=== PATIENT | female | born 1970 | race Caucasian/White ===

== ENCOUNTER → 2017-01-02 | Outpatient (CLI) | payer BC ==
[~2017-01-02] MED LIST: ALBU17AE3 IH; DOCU100C37 PO; ESTR1PAT73 TD; FEXO30TA17 PO; HYDR-3816 PO; IBUP-1773 PO; MULT-974 PO; NF-ESOM40C PO; RT-ALBUINH IH; SIME80TA16 PO; TRIA1CAP4 PO; TRIA1TAB42 PO
--- NOTE | 2017-01-02 18:09 | Diagnostic Imaging Report ---
Bilateral screening mammogram 2D views with tomosynthesis. The current study was also evaluated with a Computer Aided Detection (CAD) system. INDICATION: Screening. No current complaints stated on the questionnaire. COMPARISON: 08/15/2015. FINDINGS: The breasts are composed of scattered fibroglandular densities. No mass, architectural distortion, or suspicious cluster of calcifications seen. Allowing for technique and positional differences, no suspicious change is seen. IMPRESSION: No significant change. ACR BI-RADS Category 2: Benign findings. Result letter will be mailed to the patient. Note: At least 10% of breast cancer is not imaged by mammography. Dictated by: Dictated on workstation # [id number]
== END ==
LOC: RAD 15:10
PROVIDERS: ATTEND Obstetrics & Gynecology
DX: Z12.31 Encounter for screening mammogram for malignant neoplasm of breast (principal)
CPT/HCPCS: 77067

== ENCOUNTER 2017-10-29 06:04 | Outpatient (CLI) | payer BC ==
[~2017-10-29] VITALS: Ht 167.6 cm; Wt 88.0 kg
[~2017-10-29 06:04] MED LIST changes: +HYDR-34 PO; -HYDR-3816 PO
== END 2017-10-29 10:47 ==
LOC: PREOP 06:04
PROVIDERS: ATTEND Internal Medicine
DX: Z01.818 Encounter for other preprocedural examination (principal)

== ENCOUNTER 2017-11-01 08:46 | Day surgery (SDC) | payer BC ==
[~2017-11-01] VITALS: Ht 167.6 cm; Wt 86.2 kg
[2017-11-01] MEDS ORDERED: D5 LR IV SOLUTION 1,000 ML IV ONE (09:13)
[2017-11-01] MEDS ORDERED: D5 LR IV SOLUTION 1,000 ML IV STA (09:27)
[2017-11-01] MEDS ORDERED: MIDAZOLAM 2 MG/2 ML (VERSED) VIAL IVP PRN (09:30)
[2017-11-01] MEDS ORDERED: fentaNYL INJECTION 100 MCG/2 ML AMP IVP PRN (09:30)
--- NOTE | 2017-11-01 09:37 | Pre-Op Note & Conscious Sedat ---
Pre-Operative Progress Note H&P Reviewed The H&P was reviewed, patient examined and no changes noted. Date H&P Reviewed: Nov 01, 2017 Time H&P Reviewed: 09:37 Conscious Sedation Pre-Proced ASA Class: 2 Airway Mallampati Classification: ([place] appropriate class) I. II. III, IV Lungs Heart ASA score ASA 1: a normal healthy patient ASA 2: a patient with a mild systemic disease (mid diabetes, controlled hypertension, obesity ASA 3: a patient with a severe systemic disease that limits activity (angina , COPD, prior Myocardial infarction) ASA 4: a patient with an incapacitating disease that is a constant threat to life (CHF, renal failure) ASA 5: a moribund patient not expected to survive 24 hrs. (ruptured aneurysm) ASA 6: a declared brain patient whose organs are being harvested. For emergent operations, add the letter E after the classification Grade 3 Sedation Plan: Analgesia, Amnesia, Plan communicated to team members, Discussed options with patient/fam, Discussed risks with patient/fam Note The patient is an appropriate candidate to undergo the planned procedure, sedation, and anesthesia. The patient immediately re-assessed prior to indication. GUNNER CAST MD Nov 01, 2017 09:37
[2017-11-01] MEDS ORDERED: PROPOFOL INJECTION 50 ML IV ONE (10:10)
[2017-11-01] MEDS ORDERED: MIDAZOLAM 2 MG/2 ML (VERSED) VIAL ONE (10:10)
[2017-11-01 10:32] VITALS: BP 125/96
[2017-11-01] MEDS ORDERED: CHOL210P2 PO (11:19)
[2017-11-01 11:20] VITALS: BP 95/61
[2017-11-01 12:00] VITALS: BP 101/69
[2017-11-01 15:56] VITALS: BP 101/69
--- NOTE | 2017-11-01 16:51 | OPERATIVE REPORT ---
DATE OF SERVICE: PANENDOSCOPY SUMMARY Panendoscopy is performed for evaluation of epigastric and bilateral lower quadrant abdominal pain with diarrhea. The patient was placed in left lateral decubitus position. The endoscope was inserted in the oral cavity and under direct visualization, the esophagus was intubated. The scope was passed down the esophagus, stomach and second portion of the duodenum. A careful inspection was made as the endoscope was withdrawn. FINDINGS: The posterior pharynx, arytenoid aperture and true and false vocal folds were unremarkable. The proximal, mid and distal esophagus were unremarkable. There was a moderate size hiatal hernia with approximately 3 to 4 cm of the stomach being present above the level of the diaphragm involving the majority of the cardia. There is no evidence for erosive esophagitis and no evidence to suggest Vieira's change. Now the cardia of the stomach was unremarkable. The fundus was unremarkable. There were some mild linear areas of erythema confined to the antrum. A biopsy was obtained and submitted for histopathology. There is no evidence for erosions or peptic ulcer disease. Gastric motility grossly appeared to be normal. There was no evidence for retained food in the stomach. The pylorus, pyloric channel, the duodenal bulb and second portion of the duodenum were unremarkable with normal villous-appearing architecture in regards to the small intestine. ASSESSMENT: Moderate size hiatal hernia is again noted without evidence for erosive esophagitis or Vieira's change. There is some mild antral erythema suggesting mild gastritis. A biopsy was obtained and submitted for Helicobacter evaluation. No other abnormalities were noted on today's study. There is normal villous architecture of the first and second portion of the duodenum without inflammatory change or any evidence to suggest villous atrophy. We then proceeded with colonoscopy. The patient was placed in left lateral decubitus position. A digital rectal evaluation was performed and was unremarkable and no evidence for internal or external hemorrhoids was noted. On visual inspection of the anal canal, there are some small telangiectatic blood vessels without evidence for overt hemorrhoids. The rectum, sigmoid colon, descending colon, splenic flexure, transverse colon, ascending colon and cecum were unremarkable. There was no evidence for diverticular disease, colonic inflammation, vascular malformation or neoplasia. A biopsy was obtained from the rectum for evaluation for microscopic colitis. ASSESSMENT: Normal colonoscopy to the cecum including terminal ileum other than some telangiectatic blood vessels in the anal canal. Symptoms got significantly worse after cholecystectomy, so we will first recommend Questran Light pack or scoop before breakfast in the evening meal. If this is not effective for her symptoms, other possibilities include small bowel bacterial overgrowth or fructose intolerance and she does note that her symptoms are worse after a Pepsi. She was advised to refrain from all soda beverages and juices for now. I did take the liberty of having her return to see me for one followup visit in several weeks to see if Questran Light is improving her symptoms. If not, we will give her a low FODMAP diet and there will be consideration for antibiotic therapy for small bowel bacterial overgrowth. I thank you for the referral of this pleasant lady. Job ID: [id number] DocumentID: [id number] Dictated Date: 11/01/2017 12:21:54 Hand Grinder Date: 11/01/2017 16:51:19 Dictated By: GUNNER CAST MD MTDD
--- NOTE | 2017-11-26 08:26 | HISTORY AND PHYSICAL ---
PANENDOSCOPY HISTORY AND PHYSICAL HISTORY OF PRESENT ILLNESS: The patient is a 47-year-old white female referred by Dr. Panda for diagnostic panendoscopy. She has been having increased problems with heartburn predominantly in the evening and at night despite taking omeprazole 20 mg each morning. She denies dysphagia. She had undergone EGD evaluation 4 years ago, at which time she had a small to moderate size hiatal hernia without evidence for erosive esophagitis. She over the past several months has had increased problems with abdominal bloating, especially if she eats out. This will be followed by some stool urgency without fecal incontinence. Described reportedly significant cutting back on calories. She has had difficulty with weight loss and several months ago had significant swelling of the lower extremities, ultimately improved with initiation of triamterene. She continues to report pain around her ankles without overt stiffness or associated with swelling or erythema. She had been given Dexilant 60 mg daily and Lyrica 50 mg t.i.d., but had not yet initiated the medication after seeing Dr. Panda earlier this week. She has noted no melena or bright red blood per rectum and denies dysphagia. PAST SURGICAL HISTORY: Significant for cholecystectomy a number of years ago. In January 2015, she underwent total abdominal hysterectomy for benign reasons and then in March had to undergo right total hip replacement for degenerative joint disease. Following a fall, she had a right wrist fracture that required ORIF and then had to be revised and also has had repair of what sounds like a right labral tear over a year ago. 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 FAMILY HISTORY: Pertinent for a grandfather who was diagnosed with colon cancer in his 70s. She has a sister age 50 who has a history of colon polyps and irritable bowel syndrome. Father is living at 73 with no reported health problems and mother is living with irritable bowel syndrome in her early 70s. PAST MEDICAL HISTORY: Significant for longstanding asthma with significant allergic component. PHYSICAL EXAMINATION: GENERAL: Reveals a pleasant white female roughly 53, weighing 197 pounds. VITAL SIGNS: Blood pressure 110/82. HEENT: Unremarkable. NECK: Revealed no JVD, adenopathy or bruits. CARDIOVASCULAR: Reveals a regular rate and rhythm without murmur, S3 or S4. ABDOMEN: Soft, supple, nontender. No striae are noted. There is epigastric and bilateral lower quadrant discomfort to palpation without rebound or guarding. No mass or organomegaly is noted. EXTREMITIES: Reveal no cyanosis, clubbing, edema or evidence for petechiae or purpura. ASSESSMENT AND PLAN: The patient is set up for diagnostic EGD due to exacerbation of reflux symptoms and diagnostic colonoscopy due to family history of colon cancer and epigastric with bilateral lower quadrant abdominal pain. We did discuss irritable bowel syndrome. We will plan on performing a small bowel biopsy to rule out sprue as well as rectal biopsies to rule out microscopic colitis if there are no gross abnormalities noted on endoscopic findings. If this is the case, we will recommend a trial of Viberzi for irritable bowel syndrome, diarrhea predominant. I thank you for the referral of this pleasant lady. Job ID: [id number] DocumentID: [id number] Dictated Date: 10/24/2017 16:34:40 Molecular Physicist Date: 10/24/2017 17:11:29 Dictated By: GUNNER CAST MD <Dictated by GUNNER CAST MD> <Electronically signed by GUNNER CAST MD> 10/25/17 [id number]
== END 2017-11-01 12:10 | disposition home or self-care (01) ==
LOC: ENDO 08:46
PROVIDERS: ATTEND Internal Medicine
DX: R19.7 Diarrhea, unspecified (principal); K21.9 Gastro-esophageal reflux disease without esophagitis; K44.9 Diaphragmatic hernia without obstruction or gangrene; I10 Essential (primary) hypertension; I49.3 Ventricular premature depolarization; J45.909 Unspecified asthma, uncomplicated; Z79.899 Other long term (current) drug therapy

== ENCOUNTER → 2018-03-19 | Outpatient (CLI) | payer BC ==
[~2018-03-19] MED LIST changes: +CHOL210P2 PO
== END ==
LOC: CARD 07:48
PROVIDERS: ATTEND Internal Medicine Cardiovascular Disease
DX: I10 Essential (primary) hypertension (principal); R42 Dizziness and giddiness; M45.9 Ankylosing spondylitis of unspecified sites in spine; R07.9 Chest pain, unspecified; I34.0 Nonrheumatic mitral (valve) insufficiency
CPT/HCPCS: 93306

== ENCOUNTER → 2018-03-26 | Outpatient (CLI) | payer BC ==
[~2018-03-26] MED LIST changes: +GADOBUTROL 10 MMOL/10 ML (GADAVIST) VIAL IV ONE
--- NOTE | 2018-03-26 12:13 | Diagnostic Imaging Report ---
CLINICAL INDICATION: Patient has had headaches and throbbing sensation to the top of head x1 year. Patient states that when she looks down or closes her eyes, she gets very dizzy. In the past month, her headaches have gotten worse. EXAM: MRI of the brain performed without and with 8 cc of Gadavist IV contrast. Sequences include axial DWI, ADC map, axial gradient echo, axial T2, axial FLAIR, axial T1, axial T1 post IV contrast, coronal T1 fat-sat post IV contrast, and sagittal T1 post IV contrast. COMPARISON: Head CT without and with IV contrast dated 07/13/2010. FINDINGS: There is no evidence of acute cerebral infarct, intracranial hemorrhage, or gross mass effect. The brain parenchymal volume appears appropriate for patient's age. There is normal jackson-white matter distinction. There is no significant midline shift or herniation. The [place] vascular structures show no gross abnormality as visualized. The pituitary gland, sella, and suprasellar regions are unremarkable as visualized. There is no evidence of hydrocephalus. The basal cisterns are unremarkable. The skull, extracranial soft tissue, and orbits are unremarkable. There is minimal mucosal thickening in the ethmoid sinus. Temporal bones show no significant abnormality. IMPRESSION: Minimal ethmoid sinus disease. Otherwise, unremarkable MRI of the brain. Dictated by: Dictated on workstation # [id number]
== END ==
LOC: RAD 10:51
PROVIDERS: ATTEND Family Medicine
DX: R51 Headache (principal); R42 Dizziness and giddiness
CPT/HCPCS: 70553

== ENCOUNTER → 2018-04-07 | Outpatient (CLI) | payer BC ==
[~2018-04-07] MED LIST changes: -GADOBUTROL 10 MMOL/10 ML (GADAVIST) VIAL IV ONE
--- NOTE | 2018-04-07 12:27 | Diagnostic Imaging Report ---
INDICATION: Routine screening. Comparison is made with prior mammogram from 01/02/2017 and 08/15/2015. 2-D and 3-D bilateral screening mammography was performed with a Computer Aided Detection (CAD) system. FINDINGS: Scattered fibroglandular densities are identified bilaterally. The parenchymal pattern is stable. No mass or malignant appearing microcalcifications are seen. Axillae are unremarkable. IMPRESSION: No mammographic features suspicious for malignancy are identified. ACR BI-RADS Category 1: Negative. Result letter will be mailed to the patient. Note: At least 10% of breast cancer is not imaged by mammography. Dictated by: Dictated on workstation # [id number]
== END ==
LOC: RAD 10:10
PROVIDERS: ATTEND Nurse Practitioner Family
DX: Z12.31 Encounter for screening mammogram for malignant neoplasm of breast (principal)
CPT/HCPCS: 77067

== ENCOUNTER → 2018-07-04 | Outpatient (CLI) | payer BC ==
--- NOTE | 2018-07-04 12:01 | Diagnostic Imaging Report ---
INDICATION: Bilateral breast lumps. Sonographic interrogation of all 4 quadrants as well as retroareolar regions of both breasts was performed. Axillary regions were also evaluated. No sonographic abnormality is seen. No solid or cystic mass is identified within either breast. IMPRESSION: No sonographic abnormality is detected. Continued clinical and self breast exam is recommended to confirm stability of the palpable abnormalities. If this persists, consideration could be given to performance of the diagnostic mammogram. ACR BI-RADS Category 1: Negative. Dictated by: Dictated on workstation # [id number]
== END ==
LOC: RAD 11:00
PROVIDERS: ATTEND Obstetrics & Gynecology
DX: N63.11 Unspecified lump in the right breast, upper outer quadrant (principal); N63.12 Unspecified lump in the right breast, upper inner quadrant; N60.12 Diffuse cystic mastopathy of left breast; N60.11 Diffuse cystic mastopathy of right breast

== ENCOUNTER → 2019-04-17 | Outpatient (CLI) | payer BC ==
--- NOTE | 2019-04-17 16:08 | Diagnostic Imaging Report ---
INDICATION: Routine screening. Comparison is made with prior mammograms from 04/07/2018 and 01/02/2017. 2-D and 3-D bilateral screening mammography was performed. The current study was also evaluated with a Computer Aided Detection (CAD) system. 3-D tomosynthesis was also performed and reviewed. FINDINGS: Scattered fibroglandular densities are identified bilaterally. The parenchymal pattern is stable. No mass or malignant-appearing microcalcifications are seen. Axillae are unremarkable. IMPRESSION: No mammographic features suspicious for malignancy are identified. ACR BI-RADS Category 1: Negative. Result letter will be mailed to the patient. Note: At least 10% of breast cancer is not imaged by mammography. Dictated by: Dictated on workstation # [id number]
== END ==
LOC: RAD 10:50
PROVIDERS: ATTEND Nurse Practitioner Family
DX: Z12.31 Encounter for screening mammogram for malignant neoplasm of breast (principal)
CPT/HCPCS: 77067

== ENCOUNTER → 2019-06-02 | Outpatient (CLI) | payer BC ==
[2019-06-02 09:01] LABS: BASOPHILS % (AUTO) 1 % (0-10); EOSINOPHILS # (AUTO) 0.2 10^3/uL (0.0-0.3); EOSINOPHILS % (AUTO) 3 % (0-10); HEMATOCRIT 45 % (35-52); HEMOGLOBIN 15.3 G/DL (11.5-16.0); LYMPHOCYTES # (AUTO) 3.7 X 10^3 (1.0-4.0); LYMPHOCYTES % (AUTO) 44 % (12-44); MEAN CORPUSCULAR HEMOGLOBIN 30 PG (25-34); MEAN CORPUSCULAR HGB CONC 34 G/DL (32-36); MEAN CORPUSCULAR VOLUME 87 FL (80-99); MEAN PLATELET VOLUME 9.8 FL (7.4-10.4); MONOCYTES # (AUTO) 0.5 X 10^3 (0.0-1.0); MONOCYTES % (AUTO) 6 % (0-12); NEUTROPHILS # (AUTO) 3.9 X 10^3 (1.8-7.8); NEUTROPHILS % (AUTO) 46 % (42-75); PLATELET COUNT 307 10^3/uL (130-400); RED CELL DISTRIBUTION WIDTH 14.2 % (10.0-14.5); WHITE BLOOD COUNT 8.4 10^3/uL (4.3-11.0)
[2019-06-02 09:25] LABS: ALANINE AMINOTRANSFERASE 31 U/L (0-55); ALBUMIN 4.7 GM/DL (3.2-4.5); ALKALINE PHOSPHATASE 115 U/L (40-136); BILIRUBIN,TOTAL 0.5 MG/DL (0.1-1.0); BUN/CREATININE RATIO 12; CALCIUM 10.3 MG/DL (8.5-10.1); CARBON DIOXIDE 25 MMOL/L (21-32); CHLORIDE 104 MMOL/L (98-107); CREATININE SERUM 1.12 MG/DL (0.60-1.30); GFR ESTIMATED 51; GLUCOSE 105 MG/DL (70-105); POTASSIUM 3.9 MMOL/L (3.6-5.0); SODIUM 140 MMOL/L (135-145); TOTAL PROTEIN 8.3 GM/DL (6.4-8.2)
[2019-06-02 09:31] LABS: ERYTHROCYTE SEDIMENTATION RATE 17 MM/HR (0-30)
== END ==
LOC: LAB 08:22
PROVIDERS: ATTEND Allergy & Immunology
DX: M15.9 Polyosteoarthritis, unspecified (principal); E55.9 Vitamin D deficiency, unspecified; R53.83 Other fatigue; Z79.899 Other long term (current) drug therapy
CPT/HCPCS: 36415; 80053; 82306; 84436; 84443; 85025; 85652; 86141

== ENCOUNTER → 2019-06-02 | Outpatient (CLI) | payer BC ==
[2019-06-02 09:02] LABS: BASOPHILS % (AUTO) 1 % (0-10); EOSINOPHILS # (AUTO) 0.2 10^3/uL (0.0-0.3); EOSINOPHILS % (AUTO) 3 % (0-10); HEMATOCRIT 45 % (35-52); HEMOGLOBIN 15.3 G/DL (11.5-16.0); LYMPHOCYTES # (AUTO) 3.7 X 10^3 (1.0-4.0); LYMPHOCYTES % (AUTO) 44 % (12-44); MEAN CORPUSCULAR HEMOGLOBIN 30 PG (25-34); MEAN CORPUSCULAR HGB CONC 34 G/DL (32-36); MEAN CORPUSCULAR VOLUME 87 FL (80-99); MEAN PLATELET VOLUME 9.8 FL (7.4-10.4); MONOCYTES # (AUTO) 0.5 X 10^3 (0.0-1.0); MONOCYTES % (AUTO) 6 % (0-12); NEUTROPHILS # (AUTO) 3.9 X 10^3 (1.8-7.8); NEUTROPHILS % (AUTO) 46 % (42-75); PLATELET COUNT 307 10^3/uL (130-400); RED CELL DISTRIBUTION WIDTH 14.2 % (10.0-14.5); WHITE BLOOD COUNT 8.4 10^3/uL (4.3-11.0)
[2019-06-02 09:23] LABS: ALANINE AMINOTRANSFERASE 31 U/L (0-55); ALBUMIN 4.7 GM/DL (3.2-4.5); ALKALINE PHOSPHATASE 115 U/L (40-136); BILIRUBIN,TOTAL 0.5 MG/DL (0.1-1.0); BUN/CREATININE RATIO 12; CALCIUM 10.6 MG/DL (8.5-10.1); CARBON DIOXIDE 25 MMOL/L (21-32); CHLORIDE 104 MMOL/L (98-107); CHOLESTEROL 258 MG/DL (< 200); GFR ESTIMATED 53; GLUCOSE 106 MG/DL (70-105); HDL CHOLESTEROL 54 MG/DL (40-60); POTASSIUM 3.9 MMOL/L (3.6-5.0); SODIUM 140 MMOL/L (135-145); TOTAL PROTEIN 8.3 GM/DL (6.4-8.2); TRIGLYCERIDES 205 MG/DL (<150); VLDL CHOLESTEROL 41 MG/DL (5-40)
[2019-06-02 09:47] LABS: FREE T4 (FREE THYROXINE) 0.98 NG/DL (0.70-1.48)
== END ==
LOC: LAB 08:24
PROVIDERS: ATTEND Family Medicine
DX: E55.9 Vitamin D deficiency, unspecified (principal); M06.4 Inflammatory polyarthropathy
CPT/HCPCS: 80053; 80061; 82306; 84439; 84443

== ENCOUNTER 2020-02-26 16:03 | Emergency (ER) | payer BC ==
[~2020-02-26] VITALS: Ht 167 cm; Wt 83.9 kg
[2020-02-26] MEDS ORDERED: LACTATED RINGERS 1,000 ML IV ONE ×2 (16:46)
[2020-02-26] MEDS ORDERED: LACTATED RINGERS 2,000 ML IV ONE (16:50)
--- NOTE | 2020-02-26 16:57 | ED Abdominal Pain ---
General Stated Complaint: COVID SYMPTOMS Source of Information: Patient, RN/MD (Dr. Panda telephone) Exam Limitations: No Limitations (ILENE LIVINGSTON) History of Present Illness Date Seen by Provider: Feb 26, 2020 Time Seen by Provider: 16:32 Initial Comments The patient arrives to the ER by private conveyance from home with chief complaint that for the past 6 days she's had occasional diarrhea vomiting fever Tmax 102 and occasional shortness of breath with nonproductive cough. Her symptoms started Saturday and Saturday she went to urgent care and had a negative COVID test. She is having some discomfort in her left upper and lower abdomen and has a history of diverticulitis so Saturday she went to her primary care provider, Dr. Panda. Flu swab there was negative. She was started on Flagyl and Cipro with presumptive diagnosis of diverticulitis. She has not gotten any better. She feels tremendously better after vomiting today and no longer has any nausea. She's not having significant pain to want anything for it. She has taken Tylenol and ibuprofen both within the past couple hours for fever. She has a headache behind both her eyes and feels like her ears are full. She denies sore throat or difficulty swallowing. She does have a history of asthma but no other lung disease. She has a hysterectomy and cholecystectomy history but no trauma or other abdominal surgeries. No blood in the stool or emesis. She does have some dysuria. (ILENE LIVINGSTON) Allergies and Home Medications Allergies Coded Allergies: Penicillins (Unverified Allergy, Unknown, SOB, 02/01/15) adhesive (Verified Allergy, Unknown, BLISTERS, 02/01/15) azithromycin (Verified Allergy, Unknown, RASH, 11/01/17) clarithromycin (Unverified Allergy, Unknown, SWELLING, 02/01/15) moxifloxacin HCl (Unverified Allergy, Unknown, SWELLING, 02/01/15) Home Medications Albuterol Sulfate 6.7 Gm Hfa.aer.ad, 2 PUFF IH Q4H PRN for SHORTNESS OF BREATH, (Reported) Cefuroxime Axetil 500 Mg Tablet, 500 MG PO BID Prescribed by: JOSELINE MATSON on 02/26/201923 Cholestyramine/Aspartame 210 Gm Powder, 210 GM PO BID Prescribed by: GUNNER CAST on 11/01/17 1119 Multivitamin 1 Each Tablet, 1 EACH PO DAILY, (Reported) Triamterene/Hydrochlorothiazid 1 Each Capsule, 1 EACH PO DAILY, (Reported) Patient Home Medication List Home Medication List Reviewed: Yes (ILENE LIVINGSTON) Review of Systems Review of Systems Constitutional: chills; No diaphoresis; fever, malaise EENTM: No Blurred Vision, No Double Vision Respiratory: Cough, Shortness of Air; Denies Wheezing Cardiovascular: Denies Chest Pain, Denies Edema Gastrointestinal: See HPI; Denies Abdomen Distended; Abdominal Pain; Denies Constipated; Diarrhea, Nausea, Vomiting Genitourinary: See HPI, Burning; Denies Discharge Musculoskeletal: No back pain, No gout, No joint pain Skin: No pruritus, No rash, No other Psychiatric/Neurological: Denies Headache, Denies Numbness (ILENE LIVINGSTON) All Other Systems Reviewed Negative Unless Noted: Yes (ILENE LIVINGSTON) Past Qtvpkul-Hikbaq-Guqszk Hx Patient Social History Alcohol Use: Denies Use Recreational Drug Use: No Smoking Status: Never a Smoker Recent Foreign Travel: No Contact w/Someone Who Travel: No Recent Hopitalizations: No (ILENE LIVINGSTON) Immunizations Up To Date Date of Influenza Vaccine: Mar 12, 2012 (ILENE LIVINGSTON) Seasonal Allergies Seasonal Allergies: Yes (ILENE LIVINGSTON) Past Medical History Hysterectomy Asthma 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 0.0oz. 86.819984pj; 30.7 BMI Method: General Appearance: WD/WN, mild distress HEENT: PERRL/EOMI; No pharynx normal (oral pharynx is dry) Neck: full range of motion, normal inspection Respiratory: lungs clear, normal breath sounds, no respiratory distress (saturations 95% on room air, nonlabored.), no accessory muscle use Cardiovascular: normal peripheral pulses, regular rate, rhythm, no edema, no murmur, tachycardia (110) Peripheral Pulses: 2+ Radial Pulses (R), 2+ Radial Pulses (L) Gastrointestinal: normal bowel sounds, soft; No guarding, No rebound; tenderness (left upper quadrant and lower quadrant without mesenteric signs. Negative for psoas sign or Rovsing sign.) Extremities: normal range of motion, non-tender, normal inspection, normal capillary refill Neurologic/Psychiatric: alert, normal mood/affect, oriented x 3 Skin: normal color, warm/dry (ILENE LIVINGSTON) Focused Exam Lactate Level 02/26/20 16:40: Lactic Acid Level 1.48 (JOSELINE MATSON APRN) Lactic Acid Level Laboratory Tests Test 02/26/20 16:40 Lactic Acid Level 1.48 MMOL/L (0.50-2.00) (JOSELINE MATSON APRN) Progress/Results/Core Measures Results/Orders Lab Results Laboratory Tests Test 02/26/20 16:40 02/26/20 16:52 Range/Units White Blood Count 4.2 L 4.3-11.0 10^3/uL Red Blood Count 4.94 3.80-5.11 10^6/uL Hemoglobin 14.9 11.5-16.0 g/dL Hematocrit 44 35-52 % Mean Corpuscular Volume 90 80-99 fL Mean Corpuscular Hemoglobin 30 25-34 pg Mean Corpuscular Hemoglobin Concent 34 32-36 g/dL Red Cell Distribution Width 13.4 10.0-14.5 % Platelet Count 209 130-400 10^3/uL Mean Platelet Volume 10.0 9.0-12.2 fL Immature Granulocyte % (Auto) 1 % Neutrophils (%) (Auto) 77 H 42-75 % Lymphocytes (%) (Auto) 17 12-44 % Monocytes (%) (Auto) 5 0-12 % Eosinophils (%) (Auto) 0 0-10 % Basophils (%) (Auto) 0 0-10 % Neutrophils # (Auto) 3.3 1.8-7.8 10^3/uL Lymphocytes # (Auto) 0.7 L 1.0-4.0 10^3/uL Monocytes # (Auto) 0.2 0.0-1.0 10^3/uL Eosinophils # (Auto) 0.0 0.0-0.3 10^3/uL Basophils # (Auto) 0.0 0.0-0.1 10^3/uL Immature Granulocyte # (Auto) 0.0 0.0-0.1 10^3/uL Prothrombin Time 12.6 12.2-14.7 SEC INR Comment 0.9 0.8-1.4 Activated Partial Thromboplast Time 31 24-35 SEC D-Dimer 0.63 H 0.00-0.49 UG/ML Sodium Level 137 135-145 MMOL/L Potassium Level 3.6 3.6-5.0 MMOL/L Chloride Level 101 98-107 MMOL/L Carbon Dioxide Level 22 21-32 MMOL/L Anion Gap 14 5-14 MMOL/L Blood Urea Nitrogen 17 7-18 MG/DL Creatinine 1.02 0.60-1.30 MG/DL Estimat Glomerular Filtration Rate 57 BUN/Creatinine Ratio 17 Glucose Level 125 H 70-105 MG/DL Lactic Acid Level 1.48 0.50-2.00 MMOL/L Calcium Level 9.5 8.5-10.1 MG/DL Corrected Calcium 9.2 8.5-10.1 MG/DL Total Bilirubin 0.4 0.1-1.0 MG/DL Aspartate Amino Transf (AST/SGOT) 57 H 5-34 U/L Alanine Aminotransferase (ALT/SGPT) 51 0-55 U/L Alkaline Phosphatase 112 40-136 U/L C-Reactive Protein High Sensitivity 0.58 H 0.00-0.50 MG/DL Total Protein 8.0 6.4-8.2 GM/DL Albumin 4.4 3.2-4.5 GM/DL Procalcitonin 0.08 <0.10 NG/ML Coronavirus 2019 (WEN) Negative Negative (JOSELINE MATSON APRN) Micro Results Microbiology 02/26/20 Influenza Types A,B Antigen (LISA) - Final, Complete (JOSELINE MATSON APRN) My Orders Orders - JOSELINE MATSON APRN Iohexol Injection (Omnipaque 350 Mg/Ml 1 (02/26/20 17:45) Received Contrast (Hold Metformin- Contr (02/26/20 17:45) Ns (Ivpb) (Sodium Chloride 0.9% Ivpb Bag (02/26/20 17:45) Fibrin Degradation Products (02/26/20 18:24) Ct Angio Chest W (02/26/20 18:49) Iohexol Injection (Omnipaque 350 Mg/Ml 1 (02/26/20 19:15) Received Contrast (Hold Metformin- Contr (02/26/20 19:15) Sodium Chloride Flush (Catheter Flush Sy (02/26/20 19:15) Ns (Ivpb) (Sodium Chloride 0.9% Ivpb Bag (02/26/20 19:15) Cefuroxime Injection (Zinacef Injection) (02/26/20 19:30) (JOSELINE MATSON APRN) Medications Given in ED Current Medications Medications Dose Ordered Sig/Daniel Route Start Time Stop Time Status Last Admin Dose Admin Iohexol 100 ml ONCE ONCE IV 02/26/20 17:45 02/26/20 17:46 DC 02/26/20 18:01 100 ML Iohexol 100 ml ONCE ONCE IV 02/26/20 19:15 02/26/20 19:16 DC 02/26/20 19:05 55 ML Lactated Ringer's 1,000 ml @ 0 mls/hr Q0M ONCE IV 02/26/20 16:46 02/26/20 16:52 DC 02/26/20 16:57 1,000 MLS/HR Sodium Chloride 10 ml NEEDED PRN IV 02/26/20 19:15 02/26/20 19:07 10 ML Sodium Chloride 100 ml ONCE ONCE IV 02/26/20 17:45 02/26/20 17:46 DC 02/26/20 18:01 80 ML Sodium Chloride 100 ml ONCE ONCE IV 02/26/20 19:15 02/26/20 19:16 DC 02/26/20 19:07 80 ML (JOSELINE MATSON APRN) Vital Signs/I&O 02/26/20 16:20 Temp 38.0 Pulse 115 Resp 24 B/P (MAP) 115/84 (94) Pulse Ox 96 O2 Delivery Room Air (JOSELINE MATSON APRN) Progress Progress Note #1: Time: 17:02 Progress Note Patient appears to have some kind of viral illness however with her abdominal left-sided tenderness we are concerned about diverticulitis. We are going to give her a septic workup but hold the antibiotics because of her extensive allergies and she is already on antibiotics outpatient. 2 L should be greater than 20 mL/kg. She just had antipyretics recently. We will check a COVID and in fluenza swab again. We'll also check a urinalysis since she's having dysuria. Progress Note #2: Time: 18:01 Progress Note The patient may have an upper respiratory viral illness but it does not appear to be coded or influenza. She may have either significant diverticulitis or intra-abdominal process that is not responding to antibiotics or it is a viral process not responding to antibiotics. A CT scan of the abdomen will help differentiate. After a liter of her 2 L fluid bolus her heart rate is already down in the 90s. She is much more comfortable. We passed care off to Joseline Matson APRN and he is awaiting the results of the CT scan and the rest of her IV fluids before making a disposition. (ILENE LIVINGSTON) Diagnostic Imaging Diagonstic Imaging: Xray Plain Films/CT/US/NM/MRI: chest Comments [facility] [place] NAME: PAT [facility]AC[facility]BSON [facility] REC#: [id number] PT STATUS: REG ER : 1970 PHYSICIAN: ILENE LIVINGSTON MD ADMIT DATE: 02/26/20/ER Draft Date of Exam:02/26/20 CHEST 1 VIEW, AP/PA ONLY INDICATION: Sepsis COMPARISON: 02/12/2007 TECHNIQUE: Single radiographs of the chest dated 02/26/2020. FINDINGS: The cardiac silhouette and pulmonary vasculature within normal limits. The lungs are clear of focal pulmonary opacity. No pleural effusion. No pneumothorax. No acute osseous abnormality. IMPRESSION: No acute cardiopulmonary abnormality. Dictated on workstation # [id number] Dict: 02/26/20 1724 Trans: 02/26/201727 [facility] [id number] Interpreted by: CHRISTOPHER PICKETT MD Electronically signed by: Reviewed: Reviewed by Me Diagonstic Imaging: CT Plain Films/CT/US/NM/MRI: abdomen, pelvis Reviewed: Reviewed by Me (ILENE LIVINGSTON) Diagonstic Imaging: CT (JOSELINE MATSON APRN) Departure Communication (Admissions) NAME: ZARI [facility] REC#: [id number] PT STATUS: REG ER : 01/07/1988 PHYSICIAN: JOSELINE MATSON APRN ADMIT DATE: 02/26/20/ER Draft Date of Exam:02/26/20 CHEST 1 VIEW, AP/PA ONLY EXAMINATION: Chest 1 view HISTORY: Chest pain, COVID COMPARISON: None available. FINDINGS: There are vague right middle and lower zone airspace opacities. No pneumothorax. No pleural effusion. Heart size is normal for portable technique. IMPRESSION: 1. Vague mid and right lower zone airspace opacities in the right consistent with reported history of COVID 19. Dictated on workstation # [id number] Dict: 02/26/20 1624 Trans: 02/26/20 1626 CV [id number] Interpreted by: JADEN TREVIZO MD Electronically signed by: NAME: PAT JACOBSON MED REC#: [id number] PT STATUS: REG ER : 1970 PHYSICIAN: JOSELINE MATSON APRN ADMIT DATE: 02/26/20/ER Draft Date of Exam:02/26/20 CT ANGIO CHEST W PROCEDURE: CT angiography of the chest with contrast. TECHNIQUE: Multiple contiguous axial images were obtained through the chest after uneventful bolus administration of intravenous contrast. 3D reconstructed CTA MIP acquisitions were also performed. Auto Exposure Controls were utilized during the CT exam to meet ALARA standards for radiation dose reduction. INDICATION: Elevated D-dimer. Right lower lobe infiltrate. COMPARISON: CT abdomen and pelvis performed earlier the same date. FINDINGS: This helical CT pulmonary angiogram is diagnostic to the subsegmental level branches of the pulmonary artery and demonstrates no pulmonary emboli. The heart and great vessels are unremarkable. There is no pericardial effusion. Mildly prominent right hilar lymph nodes are seen measuring 1.1 cm in short axis. Consolidative hazy opacities are seen in the right lower lobe. The remainder of the lungs are clear. No central endobronchial obstructing lesions. No pleural effusion or pneumothorax. Osseous structures appear normal. Limited views of the upper abdomen are unremarkable. IMPRESSION: 1. No acute pulmonary embolus. 2. Consolidative hazy opacities in the right lung base, favored to represent inflammatory or infectious etiology. Associated prominent right hilar lymph nodes are seen favored to be reactive. Dictated on workstation # [id number] Dict: 02/26/201908 Trans: 02/26/201915 [facility] [id number] Interpreted by: SHYANNE SMITH DO Electronically signed by: Family Conversation 1903-I've taken over care of this very pleasant lady, she is nontoxic appearing. She is currently over in the radiology department for a CT angios of the chest given the slight abnormality seen on the lower lung field on the right on the abdomen pelvis CT. She reports that she's had some pressure in her ears and between and behind her eyes and did blow her nose a few days ago and noticed some bloody snot. Certainly sinusitis is within the differential. She asks about meningitis, she is able to flex or chills her chest, her CRP is minimally elevated, and I am not convinced enough of meningitis (given radiologic findings and labs) to warrant diagnostic lumbar puncture. She also has a list of antibiotics that she cannot tolerate either due to allergy or adverse effect, she is currently on Cipro and Flagyl for a possible diverticulitis flareup. I'll have her stop that, we will probably switch to cefuroxime axetil. She states that she has taken Omnicef before but had some sort of a bad reaction to it and can't remember what, took Levaquin before but she also had to stop that one because of some nausea. 1928-still doing well. I discussed the CT GO chest result with her. We will stop the ciprofloxacin and Flagyl now that we have a normal CT abdomen and pelvis. I'll switch to cefuroxime axetil which would give better coverage for upper respiratory pathogens since we now know that to be the cause. Given her history of several drug allergies we'll go ahead and do the first dose of Zinacef IV here just to make sure she tolerates this okay and if not she'll be here and we can intervene. (JOSELINE MATSON APRN) Impression Primary Impression: Sinusitis Qualified Codes: J01.40 - Acute pansinusitis, unspecified Additional Impression: Right lower lobe pneumonia Qualified Codes: J18.9 - Pneumonia, unspecified organism Disposition: 01 HOME, SELF-CARE Condition: Stable Departure-Patient Inst. Decision time for Depature: 19:22 (JOSELINE MATSON APRN) Referrals: TYRESE PANDA MD (PCP/Family) Primary Care Physician Patient Instructions: Community-Acquired Pneumonia in Adults, Sinusitis, Adult (DC) Add. Discharge Instructions: 1. You can stop the ciprofloxacin and Flagyl. Start the new antibiotic called cefuroxime axetil as directed. Return to ER for any concerns. Follow-up with Dr. Panda next week. Scripts Cefuroxime Axetil (Cefuroxime) 500 Mg Tablet 500 MG PO BID, #10 TAB Prov: JOSELINE MATSON APRN 02/26/20 ILENE LIVINGSTON Feb 26, 2020 16:57 JOSELINE MATSON APRN Feb 26, 2020 19:07
[2020-02-26 17:03] LABS: BASOPHILS % (AUTO) 0 % (0-10); EOSINOPHILS % (AUTO) 0 % (0-10); HEMATOCRIT 44 % (35-52); HEMOGLOBIN 14.9 g/dL (11.5-16.0); LYMPHOCYTES # (AUTO) 0.7 10^3/uL (1.0-4.0); LYMPHOCYTES % (AUTO) 17 % (12-44); MEAN CORPUSCULAR HEMOGLOBIN 30 pg (25-34); MEAN CORPUSCULAR HGB CONC 34 g/dL (32-36); MEAN CORPUSCULAR VOLUME 90 fL (80-99); MONOCYTES # (AUTO) 0.2 10^3/uL (0.0-1.0); MONOCYTES % (AUTO) 5 % (0-12); NEUTROPHILS # (AUTO) 3.3 10^3/uL (1.8-7.8); NEUTROPHILS % (AUTO) 77 % (42-75); PLATELET COUNT 209 10^3/uL (130-400); WHITE BLOOD COUNT 4.2 10^3/uL (4.3-11.0)
[2020-02-26 17:15] LABS: INR 0.9 (0.8-1.4); PROTHROMBIN TIME PATIENT 12.6 SEC (12.2-14.7)
[2020-02-26 17:23] LABS: ALBUMIN 4.4 GM/DL (3.2-4.5); BILIRUBIN,TOTAL 0.4 MG/DL (0.1-1.0); CALCIUM 9.5 MG/DL (8.5-10.1); CREATININE SERUM 1.02 MG/DL (0.60-1.30); POTASSIUM 3.6 MMOL/L (3.6-5.0)
--- NOTE | 2020-02-26 17:29 | Diagnostic Imaging Report ---
INDICATION: Sepsis COMPARISON: 02/12/2007 TECHNIQUE: Single radiographs of the chest dated 02/26/2020. FINDINGS: The cardiac silhouette and pulmonary vasculature within normal limits. The lungs are clear of focal pulmonary opacity. No pleural effusion. No pneumothorax. No acute osseous abnormality. IMPRESSION: No acute cardiopulmonary abnormality. Dictated by: Dictated on workstation # [id number]
[2020-02-26] MEDS ORDERED: NS 100 ML (IVPB) BAG IV ONE ×2 (17:45→19:15)
[2020-02-26] MEDS ORDERED: IOHEXOL 350 MG/ML 100 ML (OMNIPAQUE 350) VIAL IV ONE ×2 (17:45→19:15)
[2020-02-26] MEDS ORDERED: HOLD METFORMIN - RECEIVED CONTRAST 20 ML VIAL IV SCH ×2 (17:45→19:15)
--- NOTE | 2020-02-26 18:18 | Diagnostic Imaging Report ---
EXAMINATION: CT Abdomen and Pelvis with intravenous contrast. TECHNIQUE: Multiple contiguous axial images were obtained through the abdomen and pelvis after the uneventful administration of intravenous contrast. All CT scans use one or more of the following dose optimizing techniques: automated exposure control, MA and/or KvP adjustment based on a patient size and exam type, or iterative reconstruction. HISTORY: Left-sided abdominal pain. COMPARISON: 10/28/2014. FINDINGS: The heart is unremarkable. Focal hazy opacities are seen in the right lung base. The liver, spleen, pancreas, adrenal glands, and kidneys have a normal appearance. The gallbladder is surgically absent. There is no pathologically enlarged mesenteric or retroperitoneal adenopathy. The bowel loops are nondilated. The appendix is visualized in the right lower quadrant and has a normal appearance. A few scattered diverticuli are seen in the sigmoid colon.. There is no free fluid or free air. No acute osseous abnormalities. Ureters and bladder are grossly normal. A phlebolith is noted in the left aspect of the pelvis. There is no free air, loculated collection, or adenopathy in the pelvis. IMPRESSION: 1. Focal hazy opacities in the right lung base, which may represent inflammatory or infectious etiology. 2. Scattered diverticuli in the sigmoid colon. No evidence of acute diverticulitis. Dictated by: Dictated on workstation # [id number]
[2020-02-26] MEDS ORDERED: CATHETER FLUSH 10 ML SYR IV PRN (19:15)
--- NOTE | 2020-02-26 19:17 | Diagnostic Imaging Report ---
PROCEDURE: CT angiography of the chest with contrast. TECHNIQUE: Multiple contiguous axial images were obtained through the chest after uneventful bolus administration of intravenous contrast. 3D reconstructed CTA MIP acquisitions were also performed. Auto Exposure Controls were utilized during the CT exam to meet ALARA standards for radiation dose reduction. INDICATION: Elevated D-dimer. Right lower lobe infiltrate. COMPARISON: CT abdomen and pelvis performed earlier the same date. FINDINGS: This helical CT pulmonary angiogram is diagnostic to the subsegmental level branches of the pulmonary artery and demonstrates no pulmonary emboli. The heart and great vessels are unremarkable. There is no pericardial effusion. Mildly prominent right hilar lymph nodes are seen measuring 1.1 cm in short axis. Consolidative hazy opacities are seen in the right lower lobe. The remainder of the lungs are clear. No central endobronchial obstructing lesions. No pleural effusion or pneumothorax. Osseous structures appear normal. Limited views of the upper abdomen are unremarkable. IMPRESSION: 1. No acute pulmonary embolus. 2. Consolidative hazy opacities in the right lung base, favored to represent inflammatory or infectious etiology. Associated prominent right hilar lymph nodes are seen favored to be reactive. Dictated by: Dictated on workstation # [id number]
[2020-02-26] MEDS ORDERED: CEFU500T63 PO (19:24)
[2020-02-26] MEDS ORDERED: CEFUROXIME INJECTION 1,500 MG in WATER (STERILE) FOR INJECTION 15 ML IV ONE (19:30)
[2020-02-26] MEDS ORDERED: WATER (STERILE) FOR INJECTION 20 ML ONE (19:41)
[2020-02-26 19:49] LABS: BILIRUBIN,URINE NEGATIVE (NEGATIVE); CLARITY,URINE CLEAR; COLOR,URINE YELLOW; GLUCOSE, URINE (UA) NEGATIVE (NEGATIVE); KETONES,URINE NEGATIVE (NEGATIVE); LEUKOCYTE ESTERASE ,URINE 1+ (NEGATIVE); NITRITE,URINE NEGATIVE (NEGATIVE); PH,URINE 6.5 (5-9); PROTEIN,URINE NEGATIVE (NEGATIVE)
[2020-02-26 19:55] LABS: BACTERIA,URINE TRACE /HPF
[2020-02-26 20:03] VITALS: BP 105/72
== END 2020-02-26 20:05 | disposition home or self-care (01) ==
LOC: EDUNIT# 16:03 → ER 16:07
DX: J32.9 Chronic sinusitis, unspecified (principal); J18.1 Lobar pneumonia, unspecified organism; J45.909 Unspecified asthma, uncomplicated; Z20.828 Contact with and (suspected) exposure to other viral communicable diseases; Z82.61 Family history of arthritis; Z82.49 Family history of ischemic heart disease and other diseases of the circulatory system; Z88.0 Allergy status to penicillin; Z88.1 Allergy status to other antibiotic agents; Z88.8 Allergy status to other drugs, medicaments and biological substances
CPT/HCPCS: 71045; 71275; 74177; 80053; 81000; 83605; 84145; 85025; 85379; 85610; 85730; 86141; 87040; 87088; 87804; 99284; U0002; 36415; 87635

== ENCOUNTER 2021-02-21 16:40 | Emergency (ER) | payer BC ==
[~2021-02-21] VITALS: Ht 167 cm; Wt 90.0 kg
--- OUTSIDE RECORDS SUMMARY | 2021-02-21 16:45 | XMS REPORT | Clinical Summary ---
Author Author [facility] Organization [facility] Address Unknown Phone Unavailable Care Team Providers Care Sanitation Tank Washer Name Role Phone Angelita Panda MD PCP Source Comments Some departments are not documenting in the electronic medical record. If you d o not see the information that you expected, contact Release of Information in [facility] [employer] Information Management department at [phone] for further assistan ce in locating additional records.[facility] Allergies Comments Active Allergy Reactions Severity Noted Date Amoxicillin EDEMA Medium 05/09/2018 Moxifloxacin EDEMA Medium 05/09/2018 Azithromycin ANAPHYLAXIS High 05/09/2018 Clarithromycin EDEMA Medium 05/09/2018 Cephalosporins HIVES, RASH Medium 05/09/2018 Codeine NAUSEA AND Low 05/09/2018 VOMITING Penicillins RASH Medium 05/09/2018 Medications End Date Status Medication Sig Dispensed Refills Start Date Active omeprazole DR(+) 3 (PRILOSEC) 40 mg capsule 9 Active triamterene-hydrochloroth 5 iazide (DYAZIDE) 37.5-25 9 mg capsule Active vitamins, B complex tab Take 1 tablet 0 by mouth daily. Active Cholecalciferol (Vitamin Take by 0 D3) (VITAMIN D-3) 2,000 mouth. unit cap Active multivit with Take by 0 calcium,iron,min (WOMEN'S mouth. MULTIPLE VITAMINS PO) Active Magnesium 250 mg tab Take by 0 mouth. Active amitriptyline (ELAVIL) 10 Take one 30 tablet 5 mg tabletIndications: tablet by 9 migraine prevention mouth at bedtime daily. Active Problems Problem Noted Date Intractable chronic migraine without aura and without status migrainosus 05/09/2018 Surgical History Surgery Date Site/Laterality Comments HYSTERECTOMY HIP REPLACEMENT Right WRIST SURGERY Right x2 SHOULDER SURGERY Right Medical History Medical History Date Comments Chest pain Disorganized thinking Vision decreased Family History Medical History Relation Name Comments Cancer Maternal Skin CA Grandfather Cancer Paternal Prostate CA Grandfather Cancer Paternal Breast CA Grandmother Stroke Paternal Grandmother Relation Name Status Comments Maternal Grandfather Paternal Grandfather Paternal Grandmother Social History Date Tobacco Use Types Packs/Day Years Used Never Smoker Smokeless Tobacco: Never Used Comments Alcohol Use Standard Drinks/Week Yes 1 (1 standard drink = 0.6 o z pure alcohol) Sex Assigned at Date Recorded Not on file Last Filed Vital Signs Reading Time Taken Comments Vital Sign 129/90 05/09/2018 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 Blood Pressure 75 05/09/2018 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 Pulse - - Temperature - - Respiratory Rate - - Oxygen Saturation - - Inhaled Oxygen Concentration 89.8 kg (198 lb) 05/09/2018 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 Weight 167.6 cm (5' 6") 05/09/2018 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 Height 31.96 05/09/2018 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 Body Mass Index Plan of Treatment Health Maintenance Due Date Last Done Comments HIV SCREENING 09/05/1983 DTAP/TDAP VACCINES (1 - 1986 Tdap) HEPATITIS C SCREENING 1986 PHYSICAL (COMPREHENSIVE) 1986 EXAM CERVICAL CANCER SCREENING 1989 BREAST CANCER SCREENING 2008 COLORECTAL CANCER 2018 SCREENING SHINGLES RECOMBINANT 2018 VACCINE (1 of 2) INFLUENZA VACCINE 11/13/2020 03/05/2009 Results Not on filefrom Last 3 Months Insurance Type Payer Benefit Subscriber ID Effective Phone Address Plan / Dates Group PPO [facility] [id number] PREF CARE resent BLUE [id number] Advance Directives 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
--- OUTSIDE RECORDS SUMMARY | 2021-02-21 16:45 | XMS REPORT | CCD ---
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 Name Role Phone PP Unavailable CCM Unavailable Summary Purpose Interface Exchange Insurance Providers Payer name Policy type / Coverage type Covered constitution party ID Effective Begin Date Effective End Date Blue Cross Blue [facility] Blue Cross/Blue Shield [id number] Unknown Unknown Family history Father Diagnosis Age At Onset Skin cancer Unknown Son Diagnosis Age At Onset Asthma Unknown Mother Diagnosis Age At Onset Arthritis Unknown Social History Social History Element Codes Description Effective Dates Marital status Unknown 09/23/2014 Number of children Unknown 2 09/23/2014 Living arrangements Unknown House 09/23/2014 Education level Unknown Post-Graduate 09/23/2014 Employment Unknown 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 [employer] 09/23/[address]: 289409165 Never smoker 09/23/2014 Alcohol history Unknown occasionally drinks alcohol 09/13 Allergies, Adverse Reactions, Alerts Substance Reaction Codes Entered Date Inactivated Date Status Penicillin Unknown 09/21/2014 No Inactive Date Active zithromax RxNorm: 259212 05/14/2016 No Inactive Date Acti ve biaxin RxNorm: 92547 04/02/2016 No Inactive Date Activ e * NO KNOWN FOOD ALLERGIES Unknown 09/21/2014 No Inactiv e Date Active SULFA (SULFONAMIDE ANTIBIOTICS) Unknown 11/19/2018 No I nactive Date Active AVELOX RxNorm: 532364 04/02/2016 No Inactive Date Acti ve Problems Condition Codes Effective Dates Condition Status Dysuria ICD-10: R30.0 ICD-9: 788.1 01/25/2021 Active Diverticulitis large intestine ICD-10: K57.32 ICD-9: 562.11 08/31/2019 Active Epigastric abdominal pain ICD-10: R10.13 ICD-9: 789.06 08/31/2019 Active Fibromyalgia ICD-10: M79.7 ICD-9: 729.1 10/22/2017 Active Other malaise ICD-10: R53.81 ICD-9: 780.79 04/02/2017 Active Chronic maxillary sinusitis ICD-10: J32.0 ICD-9: 473.0 01/07/2019 Active Cough ICD-10: R05 ICD-9: 786.2 05/19/2020 Active Nausea ICD-10: R11.0 ICD-9: 787.02 02/29/2020 Active Pneumonia of right middle lobe due to infectious organ ism ICD-10: J18.9 ICD-9: 486 02/29/2020 Active Other acute sinusitis ICD-10: J01.80 ICD-9: 461.8 04/01/2016 Active Acute recurrent frontal sinusitis ICD-10: J01.11 ICD-9: 461.1 03/20/2018 Active Fever in other diseases ICD-10: R50.81 ICD-9: 780.61 02/22/2020 Active Lymphadenopathy of head and neck ICD-10: R59.1 ICD-9: 785.6 05/20/2019 Active Gastro-esophageal reflux disease without esophagitis I CD-10: K21.9 ICD-9: 530.81 02/18/2017 Active Muscle cramps ICD-10: R25.2 ICD-9: 729.82 08/31/2019 Active Muscle spasm of back ICD-10: M62.830 ICD-9: 724.8 08/07/2017 Active Neck pain ICD-10: M54.2 ICD-9: 723.1 05/20/2019 Active Screening mammogram, encounter for ICD-10: Z12.31 ICD-9: V76.12 04/20/2019 Active Headache ICD-10: R51 ICD-9: 784.0 10/25/2016 Active Dizziness and giddiness ICD-10: R42 ICD-9: 780.4 03/20/2018 Active Other allergic rhinitis ICD-10: J30.89 ICD-9: 477.8 04/01/2016 Active Irritable bowel syndrome with diarrhea ICD-10: K58.0 ICD-9: 564.1 11/04/2017 Active Localized edema ICD-10: R60.0 ICD-9: 782.3 02/18/2017 Active Strain of muscle and tendon of front wall of thorax, i nitial encounter ICD-10: S29.011A ICD-9: 848.8 10/22/2017 Active Other dorsalgia ICD-10: M54.89 ICD-9: 724.5 08/07/2017 Active Acute laryngopharyngitis ICD-10: J06.0 ICD-9: 465.0 04/01/2016 Active Allergic urticaria ICD-10: L50.0 ICD-9: 708.0 05/14/2016 Active Adverse effect of other drugs, medicamen ts and biological substances, initial encounter ICD-10: T50.995A ICD-9: 995.27 10/06/2015 Active Encounter for general adult medical examination withou t abnormal findings ICD- 10: Z00.00 ICD-9: V70.0 10/05/2015 Active Generalized skin eruption due to drugs and medicaments taken internally ICD-10: L27.0 ICD-9: 693.0 10/05/2015 Active Systemic lupus erythematosus (SLE) ICD-10: M32 ICD-9: 710.0 09/20/2014 Active Vitamin D deficiency, unspecified ICD-10: E55.9 ICD-9: 268.9 09/20/2014 Active Diarrhea, unspecified ICD-10: R19.7 ICD-9: 787.91 09/20/2014 Active BENIGN PAROXYSMAL VERTIGO ICD-9: 386.11 09/20/2014 Active Diarrhea ICD-9: 787.91 09/20/2014 Active SYST LUPUS ERYTHEMATOSUS ICD-9: 710.0 09/20/2014 Active Vitamin D deficiency ICD-9: 268.9 09/20/2014 Active Medications Medication Codes Instructions Start Date Stop Date Status Fill Instructions omeprazole 40 mg capsule,delayed release RxNorm: 133626 1 Capsule(s) Oral two times a day 07/19/2020 02/14/2021 Active Lyrica 25 mg capsule RxNorm: 823935 1 Capsule(s) Oral three marlen es a day 07/19/2020 09/17/2020 Inactive Flagyl 500 mg tablet RxNorm: 040245 1 Tablet(s) Oral three time s a day 07/19/2020 08/16/2020 Inactive cefuroxime axetil 250 mg tablet RxNorm: 331646 1 Tablet(s) Oral two times a day 05/19/2020 06/02/2020 Inactive omeprazole 40 mg capsule,delayed release RxNorm: 994366 TAKE 1 CAPSULE BY MOUTH DAILY 04/01/2020 07/18/2020 Inactive cefuroxime axetil 250 mg tablet RxNorm: 412022 1 Tablet(s) Oral two times a day 03/02/2020 03/06/2020 Inactive cefuroxime axetil 250 mg tablet RxNorm: 630349 1 Tablet(s) Oral two times a day 03/02/2020 03/01/2020 Inactive Ventolin HFA 90 mcg/actuation aerosol inhaler RxNorm: 095119 1-2 Puff(s) Inhalation Every 4 hrs as needed 02/26/2020 06/24/2020 Inactive meloxicam 15 mg tablet RxNorm: 276446 1 Tablet(s) Oral every day No Stop Date Active Cipro 500 mg tablet RxNorm: 564733 1 Tablet(s) Oral two times a day 02/22/2020 03/02/2020 Inactive metronidazole 500 mg tablet RxNorm: 400901 1 Tablet(s) Oral thr ee times a day 02/22/2020 03/21/2020 Inactive Singulair 10 mg tablet RxNorm: 605282 1 Tablet(s) Oral every day 05/18/2020 Inactive Diflucan 150 mg tablet RxNorm: 123821 1 Tablet(s) Oral every ot her day 02/22/2020 02/27/2020 Inactive Protonix 40 mg tablet,delayed release RxNorm: 655742 Ta blet(s) Oral BID x 1 week, then daily thereafter 02/08/2020 05/19/2020 Inactive Cipro 500 mg tablet RxNorm: 199379 1 Tablet(s) Oral two times a day 02/08/2020 02/18/2020 Inactive metronidazole 500 mg tablet RxNorm: 681079 1 Tablet(s) Oral thr ee times a day 01/25/2020 02/08/2020 Inactive omeprazole 40 mg capsule,delayed release RxNorm: 396779 1C PO DAILY 09/09/2019 02/21/2020 Inactive metronidazole 500 mg tablet RxNorm: 101294 1 Tablet(s) Oral thr ee times a day 08/31/2019 09/10/2019 Inactive diclofenac 1 % topical gel RxNorm: 135695 2 Gram(s) Topical thr ee times a day 08/31/2019 10/30/2019 Inactive prednisone 10 mg tablet RxNorm: 911496 1 Tablet(s) Oral as directed 07/16/2019 07/15/2019 Inactive prednisone 10 mg tablet RxNorm: 427941 1 Tablet(s) Oral as directed 6 tabs daily, decrease by 1 tab every 2 days then stop 07/16/2019 07/16/2019 Inactive Ventolin HFA 90 mcg/actuation aerosol inhaler RxNorm: 830624 1-2 Puff(s) Inhalation Every 4 hrs as needed 06/29/2019 10/26/2019 Inactive Diflucan 150 mg tablet RxNorm: 912508 1 Tablet(s) Oral every day 05/30/2019 Inactive pt to start on the diflucan 3 days after the levaquin is finished levofloxacin 500 mg tablet RxNorm: 299006 1 Tablet(s) Oral every da y 05/20/2019 06/17/2019 Inactive omeprazole 40 mg capsule,delayed release RxNorm: 965257 TAKE 1 CAPSULE BY MOUTH DAILY 03/11/2019 09/06/2019 Inactive Generic For:PRIL OSEC [address] Masters-25mg 37.5 mg-25 mg tablet RxNorm: 47143 1 Tablet(s) Or al every day 01/07/2019 05/19/2020 Inactive omeprazole 40 mg capsule,delayed release RxNorm: 489955 TAKE 1 CAPSULE BY MOUTH DAILY 09/30/2018 02/26/2019 Inactive Generic For:PRIL OSEC 40 MG CAPSULE 09/30/2018 12:10:13 PM omeprazole 40 mg capsule,delayed release RxNorm: 849141 TAKE 1 CAPSULE BY MOUTH DAILY 04/16/2018 09/12/2018 Inactive Generic For:PRIL OSEC 40 MG CAPSULE 04/16/2018 1:25:43 PM Questran Light 4 gram oral powder RxNorm: 9710552 1/2 packet PO BID 03/20/2018 07/17/2018 Inactive cefdinir 300 mg capsule RxNorm: 356723 1 Capsule(s) PO BID 03/20/20 18 04/02/2018 Inactive Teena-D 12 Hour 60 mg-120 mg tablet,extended release RxNor m: 272742 1 Tablet(s) PO BID 03/20/2018 04/18/2018 Inactive prednisone 20 mg tablet RxNorm: 144410 2 Tablet(s) PO daily 018 03/12/2018 Inactive prednisone 20 mg tablet RxNorm: 071195 2 Tablet(s) PO daily 018 03/17/2018 Inactive Kenalog 40 mg/mL suspension for injection RxNorm: 5738400 Millil iter(s) Inj 03/05/2018 03/05/2018 Inactive levofloxacin 500 mg tablet RxNorm: 068292 1 Tablet(s) PO daily 02/1403/19/2018 Inactive Lyrica 50 mg capsule RxNorm: 008251 1 Capsule(s) PO BID 10/24/2017 Inactive omeprazole 40 mg capsule,delayed release RxNorm: 183962 1 Capsu le(s) PO daily 10/14/2017 02/10/2018 Inactive cyclobenzaprine 5 mg tablet RxNorm: 846966 1 Tablet(s) PO TID as needed muscle spasms 08/07/2017 08/11/2017 Inactive omeprazole 40 mg capsule,delayed release RxNorm: 192178 1 Capsu le(s) PO daily 08/07/2017 09/05/2017 Inactive Keflex 500 mg capsule RxNorm: 267651 1 Capsule(s) PO TID 04/03/2017 1 06/03/2016 Inactive Keflex 500 mg capsule RxNorm: 848206 1 Capsule(s) PO TID 04/03/2017 1 06/10/2016 Inactive ceftriaxone 500 mg solution for injection RxNorm: 7684501 Inj 04/02/2017 04/02/2017 Inactive omeprazole 20 mg capsule,delayed release RxNorm: 489753 1 Capsu le(s) PO daily 02/19/2017 03/20/2017 Inactive hydrochlorothiazide 12.5 mg tablet RxNorm: 946581 1/2 Tablet(s) PO daily 02/19/2017 02/21/2017 Inactive Ventolin HFA 90 mcg/actuation aerosol inhaler RxNorm: 774880 1-2 Puff(s) INH Q4 PRN 02/08/2017 06/07/2017 Inactive ceftriaxone 500 mg solution for injection RxNorm: 3479461 2 Mill iliter(s) Inj 05/30/2016 05/30/2016 Inactive Diflucan 150 mg tablet RxNorm: 081616 1 Tablet(s) PO daily 05/30/19 17 06/05/2016 Inactive Kenalog 40 mg/mL suspension for injection RxNorm: 7318055 1 Mill iliter(s) Inj 05/16/2016 05/16/2016 Inactive Bactrim DS 800 mg-160 mg tablet RxNorm: 002556 1 Tablet(s) PO BID 0 05/16/2016 05/15/2016 Inactive Bactrim DS 800 mg-160 mg tablet RxNorm: 589611 1 Tablet(s) PO BID 0 05/16/2016 05/25/2016 Inactive prednisone 10 mg tablets in a dose pack RxNorm: 964668 1 Tablet (s) PO UD 05/14/2016 05/19/2016 Inactive 6-5-4-3-2-1 Kenalog 40 mg/mL suspension for injection RxNorm: 7465237 Millil iter(s) Inj 05/14/2016 05/14/2016 Inactive Ventolin HFA 90 mcg/actuation aerosol inhaler RxNorm: 698583 1 Puff(s) INH PRN 04/04/2016 02/07/2017 Inactive DC proventil Zithromax Z-James 250 mg tablet RxNorm: 876557 1 Tablet(s ) PO UD take pack as directed 04/02/2016 05/29/2016 Inactive z pack as direct ed Kenalog 40 mg/mL suspension for injection RxNorm: 1907837 Millil iter(s) Inj 04/02/2016 04/02/2016 Inactive ceftriaxone 500 mg solution for injection RxNorm: 8263706 Inj 04/02/2016 04/02/2016 Inactive prednisone 20 mg tablet RxNorm: 906495 2 Tablet(s) PO daily 016 04/03/2016 Inactive Proventil HFA 90 mcg/actuation aerosol inhaler RxNorm: 639188 1 Puff(s) INH PRN 04/02/2016 04/03/2016 Inactive Zithromax Z-James 250 mg tablet RxNorm: 683337 1 Tablet(s ) PO UD take pack as directed 03/28/2016 04/01/2016 Inactive z pack as direct ed Zithromax Z-James 250 mg tablet RxNorm: 061128 1 Tablet(s) PO UD 09/1403/27/2016 Inactive z pack as directed Zithromax Z-James 250 mg tablet RxNorm: 123379 1 Tablet(s) PO UD 09/1410/11/2015 Inactive z pack as directed Vitamin D2 50,000 unit capsule RxNorm: 400701 1 Capsule(s) PO QW 04/01/2017 Inactive estradiol 0.5 mg tablet RxNorm: 630882 1/2 Tablet(s) PO BID 016 04/01/2017 Inactive Zithromax Z-James 250 mg tablet RxNorm: 980299 1 Tablet(s) PO UD as needed 03/09/2015 10/06/2015 Inactive levofloxacin 500 mg tablet RxNorm: 042419 1 Tablet(s) PO daily 10/1311/23/2014 Inactive Questran 4 gram oral powder RxNorm: 405574 1 packet PO TID 09/22/19 15 09/26/2015 Inactive Maxzide-25mg 37.5 mg-25 mg tablet RxNorm: 58425 1/2 Tablet(s) PO daily 09/21/2014 01/18/2015 Inactive Vitamin D2 50,000 unit capsule RxNorm: 758682 1 Capsule(s) PO QW 12/19/2014 Inactive Calcium 500 oral RxNorm: 1897 oral 01/07/2019 Active Vitamin B-12 oral RxNorm: 05048 oral 11/19/2018 Active Teena Allergy oral RxNorm: 278310 oral 02/22/2020 Act mahnaz multivitamin tablet RxNorm: oral 09/21/2014 Active Vitamin D3 2,000 unit tablet RxNorm: 828632 1 Tablet(s) PO daily 04/01/2017 Inactive Zithromax Z-James 250 mg tablet RxNorm: 321224 1 Tablet(s) PO UD as needed 03/09/2015 03/08/2015 Inactive Ventolin HFA 90 mcg/actuation aerosol inhaler RxNorm: 193440 1 Puff(s) INH PRN 04/04/2016 04/03/2016 Inactive Vitamin D3 1,000 unit tablet RxNorm: 968112 1 Tablet(s) PO ever y other day 01/07/2019 01/06/2019 Inactive Contrave 8 mg-90 mg tablet,extended release RxNorm: 4613272 2 Ta blet(s) PO BID 04/02/2017 04/01/2017 Inactive Medication Administered Medication Codes Instructions Start Date Status Kenalog 40 mg/mL suspension for injection RxNorm: 0758682 Millilite r 03/05/2018 No longer Active ceftriaxone 500 mg solution for injection RxNorm: 9354556 04/02/2017 No longer Active ceftriaxone 500 mg solution for injection RxNorm: 3666160 2Milli liter 05/30/2016 No longer Active Kenalog 40 mg/mL suspension for injection RxNorm: 2994849 1Milli liter 05/16/2016 No longer Active Kenalog 40 mg/mL suspension for injection RxNorm: 3396268 Millilite r 05/14/2016 No longer Active ceftriaxone 500 mg solution for injection RxNorm: 5918302 04/02/2016 No longer Active Kenalog 40 mg/mL suspension for injection RxNorm: 9587317 Millilite r 04/02/2016 No longer Active Immunizations No Immunization data Results Observation Observation Code Item Item Code Result Date S ervice Location Influenza A+B Fgb444 Influ A+B Negative 02/22/2020 [facility] CULTURE, URINE M100 URINE CULTURE See Note 02/12/2020 Unknown Cbc With Differential Ord2 WBC 8.65 K/ul 03/05/20 Unknown Cbc With Differential Ord2 RBC 4.93 M/ul 03/05/20 18 Unknown Cbc With Differential Ord2 HGB 15.3 g/dl 03/05/20 Unknown Cbc With Differential Ord2 HCT 44.3 % 03/05/20 Unknown Cbc With Differential Ord2 Neut% 49.5 % 03/05/20 Unknown Cbc With Differential Ord2 Lymph% 41.6 % 03/05/20 Unknown Cbc With Differential Ord2 MCV 89.9 fl 03/05/20 Unknown Cbc With Differential Ord2 MCH 31.0 pg 03/05/20 Unknown Cbc With Differential Ord2 Candler% 6.1 % 03/05/20 Unknown Cbc With Differential Ord2 MCHC 34.5 pg 03/05/20 Unknown Cbc With Differential Ord2 Eos% 2.2 % 03/05/20 Unknown Cbc With Differential Ord2 PLT 322 K/ul 03/05/20 18 Unknown Cbc With Differential Ord2 Baso% 0.6 % 03/05/20 18 Unknown Cbc With Differential Ord2 Neut ABS# 4.28 K/ul 03/05/20 18 Unknown Cbc With Differential Ord2 RDW 13.9 % 03/05/20 18 Unknown Cbc With Differential Ord2 Lymph ABS# 3.60 K/ul 018 Unknown Cbc With Differential Ord2 Candler ABS# 0.5 K/ul 03/05/20 18 Unknown Cbc With Differential Ord2 Eos ABS# 0.2 K/ul 03/05/20 18 Unknown Cbc With Differential Ord2 Baso ABS# 0.1 K/ul 03/05/20 18 Unknown Comp Metabolic Jtu029 NA 140 mEq/L 03/05/2018 Unkn own Comp Metabolic Bxd126 K 4.1 mEq/L 03/05/2018 Unkn own Comp Metabolic Bud144 CL 102 mEq/L 03/05/2018 Unkn own Comp Metabolic Lgt455 CO2 31.0 mEq/L 03/05/2018 Unk nown Comp Metabolic Sfc120 ANION GAP 11 03/05/2018 Unkn own Comp Metabolic Kjr731 GLUCOSE 99 mg/dL 03/05/2018 Unkn own Comp Metabolic Trk657 Creat 1.0 mg/dL 03/05/2018 Unkn own Comp Metabolic Uqv743 eGFR 60 ml/min/1.73m2 03/05/20 18 Unknown Comp Metabolic Akb066 BUN 12 mg/dL 03/05/2018 Unkn own Comp Metabolic Ddx003 B/C Ratio 11.5 Ratio 03/05/2018 Unk nown Comp Metabolic Upl162 CALCIUM 9.8 mg/dL 03/05/2018 Unkn own Comp Metabolic Fem381 ALK PHOS 109 U/L 03/05/2018 Unkn own Comp Metabolic Jhx552 AST(SGOT) 31 U/L 03/05/2018 Unkn own Comp Metabolic Kyo701 ALT(SGPT) 29 U/L 03/05/2018 Unkn own Comp Metabolic Hgm030 BILI T 0.5 mg/dL 03/05/2018 Unkn own Comp Metabolic Jax623 ALBUMIN 4.4 g/dL 03/05/2018 Unkn own Comp Metabolic Pna463 TPRO 7.5 g/dL 03/05/2018 Unkn own Comp Metabolic Eda400 GLOB 3.1 g/dL 03/05/2018 Unkn own Comp Metabolic Eno908 A/G Ratio 1.4 Ratio 03/05/2018 Unkn own Comp Metabolic Klx683 Osmo 279 mOsmo 03/05/2018 Unkn own C A/B FLU 8257095 Influenza A Scr Negative 04/02/2017 Unk nown C A/B FLU 9289061 Influenza B Scr Negative 04/02/2017 Unk nown C A/B FLU 4744324 Influenza Intrp B AG:PRID:PT:NOSE:NOM:IF See Footnote 04/02/2017 Unknown Culture Urine [id number] URINE CULTURE SEE NOTES 06/01/2016 Unknown Urine Culture Ucult Complete Growth of aerobe sent to r ef lab 05/31/2016 Unknown Culture Urine [id number] URINE CULTURE SEE NOTES 05/18/2016 Unknown Urine Culture Ucult Complete Growth of aerobe sent to r ef lab 05/17/2016 Unknown VIT D TOTL 1114667 Vitamin D 25 OH 28 ng/mL 10/06/2015 Un known LIPID GRP 8004409 CHOLESTEROL 212 mg/dL 10/06/2015 Unknown LIPID GRP 1997059 Triglyceride 125 mg/dL 10/06/2015 Unknow n LIPID GRP 4886516 HDL CHOLESTEROL 52 mg/dL 10/06/2015 Unk nown LIPID GRP 4219207 Chol/HDL Ratio 4.08 ratio 10/06/2015 Unk nown LIPID GRP 9559994 NON-HDL Chol 160 mg/dL 10/06/2015 Unknow n LIPID GRP 2235301 LDL Cholesterol 135 mg/dL 10/06/2015 Unk nown TSH 4548394 TSH 1.172 uIU/mL 10/06/2015 Unknow n CHEM 14 1255079 AST 20 U/L 10/06/2015 Unknown CHEM 14 2324662 ALT 20 U/L 10/06/2015 Unknown CHEM 14 0023559 BUN 12 mg/dL 10/06/2015 Unknown CHEM 14 6217828 ALBUMIN 4.3 g/dL 10/06/2015 Unknown CHEM 14 8570226 CHLORIDE 108 mmol/L 10/06/2015 Unknown CHEM 14 3846182 Bili Total 0.7 mg/dL 10/06/2015 Unknown CHEM 14 6462408 ALK PHOS 88 U/L 10/06/2015 Unknown CHEM 14 9144673 SODIUM 137 mmol/L 10/06/2015 Unknown CHEM 14 9560608 CREATININE 0.86 mg/dL 10/06/2015 Unknown CHEM 14 7809269 CALCIUM 10.1 mg/dL 10/06/2015 Unknown CHEM 14 1591506 POTASSIUM 4.3 mmol/L 10/06/2015 Unknown CHEM 14 3066059 TOTAL PROTEIN 7.2 g/dL 10/06/2015 Unkno wn CHEM 14 6620296 GLUCOSE 94 mg/dL 10/06/2015 Unknown CHEM 14 4025824 Bicarbonate 21 mmol/L 10/06/2015 Unknown CHEM 14 0648228 AGAP 8 mmol/L 10/06/2015 Unknown CBC 7400245 WBC 8.9 10e9/L 10/06/2015 Unknown CBC 0280665 RBC 4.89 10e12/L 10/06/2015 Unknow n CBC 8536869 HEMOGLOBIN 14.9 g/dL 10/06/2015 Unknown CBC 0361177 HEMATOCRIT 43.7 % 10/06/2015 Unknown CBC 3551031 MCV 89.4 fL 10/06/2015 Unknown CBC 6684999 MCH 30.5 pg 10/06/2015 Unknown CBC 7480075 MCHC 34.1 g/dL 10/06/2015 Unknown CBC 0476410 PLATELET COUNT 311 10e9/L 10/06/2015 Unk nown CBC 1101418 Mean Plt Volume 10.8 fL 10/06/2015 Unk nown CBC 3012293 Neut Auto 58.2 % 10/06/2015 Unknown CBC 1368149 Lymph Auto 32.6 % 10/06/2015 Unknown CBC 7600981 Candler Auto 6.0 % 10/06/2015 Unknown CBC 4833575 Eos Auto 2.6 % 10/06/2015 Unknown CBC 3400078 RDW 14.1 % 10/06/2015 Unknown CBC 0321790 Baso Auto 0.6 % 10/06/2015 Unknown CBC 4447201 Neutrophil Abs 5.18 10e9/L 10/06/2015 Un known CBC 8870147 Lymphoctye Abs 2.90 10e9/L 10/06/2015 Un known CBC 3166640 Monocyte Abs 0.53 10e9/L 10/06/2015 Unkn own CBC 9471305 Eosinophil Abs 0.23 10e9/L 10/06/2015 Un known CBC 7398619 Basophil Abs 0.05 10e9/L 10/06/2015 Unkn own CBC 6458564 RDW-SD 44.9 fL 10/06/2015 Unknown GFR CALC 8624643 GFR Non Afr Amr >60 mL/min 10/06/2015 Un known GFR CALC 7639518 GFR Afr Amr >60 mL/min 10/06/2015 Unknow n Procedures Procedure Codes Date URINALYSIS NONAUTO W/O SCOPE CPT-4: 74750 01/25/2021 THER/PROPH/DIAG INJ SC/IM CPT-4: 61071 02/24/2020 TRIAMCINOLONE ACET INJ NOS 10 mg CPT-4: J3301 020 URINALYSIS NONAUTO W/O SCOPE CPT-4: 80987 02/22/2020 URINALYSIS NONAUTO W/O SCOPE CPT-4: 67359 02/08/2020 URINALYSIS NONAUTO W/O SCOPE CPT-4: 45618 03/20/2018 TRIAMCINOLONE ACET INJ NOS 10 mg CPT-4: J3301 018 ROCEPHIN, PER 250 MG CPT-4: J0696 04/02/2017 THER/PROPH/DIAG INJ SC/IM CPT-4: 23929 05/30/2016 ROCEPHIN, PER 250 MG CPT-4: J0696 05/30/2016 URINALYSIS NONAUTO W/O SCOPE CPT-4: 33680 05/30/2016 URINALYSIS NONAUTO W/O SCOPE CPT-4: 98760 05/16/2016 THER/PROPH/DIAG INJ SC/IM CPT-4: 28684 05/16/2016 TRIAMCINOLONE ACET INJ NOS 10 mg CPT-4: J3301 017 TRIAMCINOLONE ACET INJ NOS 10 mg CPT-4: J3301 017 THER/PROPH/DIAG INJ SC/IM CPT-4: 55268 04/02/2016 ROCEPHIN, PER 250 MG CPT-4: J0696 04/02/2016 TRIAMCINOLONE ACET INJ NOS 10 mg CPT-4: J3301 016 THER/PROPH/DIAG INJ SC/IM CPT-4: 80984 10/06/2015 Vital Signs Date Vital 07/19/2020 Blood Pressure 1: 120/82 Code: 8480-6 BMI: 32.3 Code: 02921-9 Heart Rate 1: 95 bpm Height: 5'6" Code: 8302-2 SpO2: 98% Temperature: 3 6.3 (C) / 97.3 (F) Weight: 200 lbs Code: 65389-8 05/19/2020 Blood Pressure 1: 122/76 Code: 8480-6 BMI: 31.3 Code: 79895-6 Heart Rate 1: 97 bpm Height: 5'6" Code: 8302-2 Respiratory Rate: 18 bpm SpO2: 99% Temperature: 36.4 (C) / 97.6 (F) Weight: 194 lbs Code: 73160-1 02/29/2020 Blood Pressure 1: 110/70 Code: 8480-6 Heart Rate 1: 108 bpm Height: Code: 8302-2 SpO2: 99% Temperature: 36.6 (C) / 97.8 (F) Weight: Code: 41585-4 02/22/2020 Blood Pressure 1: 124/80 Code: 8480-6 BMI: 30.8 Code: 74379-1 Heart Rate 1: 104 bpm Height: 5'6" Code: 8302-2 Respiratory Rate: 19 bpm SpO2: 98% Temperature: 36.8 (C) / 98.3 (F) Weight: 191 lbs Code: 38486-6 02/08/2020 Blood Pressure 1: 120/74 Code: 8480-6 Heart Rate 1: 103 bpm Height: 5'6" Code: 8302-2 SpO2: 99% Temperature: 36.3 (C) / 97.4 (F) Weight: Code: 92331-3 08/31/2019 Blood Pressure 1: 112/74 Code: 8480-6 BMI: 30.8 Code: 94418-5 Heart Rate 1: 68 bpm Height: 5'6" Code: 8302-2 Respiratory Rate: 16 bpm SpO2: 97% Temperature: 36.6 (C) / 97.8 (F) Weight: 191 lbs Code: 86256-5 05/20/2019 Blood Pressure 1: 102/68 Code: 8480-6 BMI: 31.6 Code: 69890-2 Heart Rate 1: 93 bpm Height: 5'6" Code: 8302-2 SpO2: 98% Temperature: 3 6.9 (C) / 98.4 (F) Weight: 196 lbs Code: 14678-4 01/07/2019 Blood Pressure 1: 100/78 Code: 8480-6 BMI: 31.6 Code: 50866-9 Heart Rate 1: 75 bpm Height: 5'6" Code: 8302-2 SpO2: 98% Weight: 196 lb s Code: 01654-9 11/19/2018 Blood Pressure 1: 118/84 Code: 8480-6 BMI: 31.8 Code: 41815-3 Heart Rate 1: 76 bpm Height: 5'6" Code: 8302-2 SpO2: 97% Weight: 197 lb s Code: 22288-6 03/20/2018 Blood Pressure 1: 120/70 Code: 8480-6 BMI: 32.0 Code: 20591-3 Heart Rate 1: 72 bpm Height: 5'6" Code: 8302-2 SpO2: 95% Weight: 198 lb s Code: 80237-9 03/05/2018 Blood Pressure 1: 132/88 Code: 8480-6 Heart Rate 1: 82 bpm Height: 5'6" Code: 8302-2 SpO2: 97% 11/04/2017 Blood Pressure 1: 120/88 Code: 8480-6 BMI: 31.3 Code: 23612-1 Heart Rate 1: 105 bpm Height: 5'6" Code: 8302-2 SpO2: 97% Weight: 194 lb s Code: 97896-5 10/22/2017 Blood Pressure 1: 118/86 Code: 8480-6 BMI: 31.3 Code: 00909-9 Heart Rate 1: 101 bpm Height: 5'6" Code: 8302-2 SpO2: 97% Weight: 194 lb s Code: 17895-6 08/07/2017 Blood Pressure 1: 120/78 Code: 8480-6 BMI: 31.6 Code: 98566-0 Heart Rate 1: 85 bpm Height: 5'6" Code: 8302-2 SpO2: 97% Weight: 196 lb s Code: 18693-7 04/02/2017 Blood Pressure 1: 130/84 Code: 8480-6 BMI: 31.0 Code: 05497-8 Heart Rate 1: 96 bpm Height: 5'6" Code: 8302-2 SpO2: 96% Temperature: 3 7.9 (C) / 100.3 (F) Weight: 192 lbs Code: 46932-8 02/18/2017 Blood Pressure 1: 122/70 Code: 8480-6 BMI: 31.3 Code: 79229-5 Heart Rate 1: 66 bpm Height: 5'6" Code: 8302-2 SpO2: 98% Weight: 194 lb s Code: 42410-7 10/25/2016 Blood Pressure 1: 118/70 Code: 8480-6 Heart Rate 1: 70 bpm Height: 5'6" Code: 8302-2 SpO2: 96% 05/14/2016 Blood Pressure 1: 114/80 Code: 8480-6 BMI: 30.7 Code: 85584-3 Heart Rate 1: 120 bpm Height: 5'6" Code: 8302-2 SpO2: 97% Weight: 190 lb s Code: 54611-6 04/02/2016 Blood Pressure 1: 120/78 Code: 8480-6 Heart Rate 1: 73 bpm Height: 5'6" Code: 8302-2 SpO2: 98% Weight: Code: 19598-0 10/06/2015 Blood Pressure 1: 132/76 Code: 8480-6 Heart Rate 1: 86 bpm Height: 5'6" Code: 8302-2 SpO2: 97% Weight: Code: 32350-5 09/27/2015 Blood Pressure 1: 116/62 Code: 8480-6 BMI: 29.4 Code: 36349-1 Heart Rate 1: 71 bpm Height: 5'6" Code: 8302-2 SpO2: 98% Weight: 182 lb s Code: 74513-8 10/25/2014 Blood Pressure 1: 122/78 Code: 8480-6 BMI: 29.1 Code: 03534-8 Heart Rate 1: 76 bpm Height: 5'6" Code: 8302-2 Weight: 180 lbs Code: 16785 -7 09/21/2014 Blood Pressure 1: 122/88 Code: 8480-6 BMI: 28.6 Code: 89514-2 Heart Rate 1: 95 bpm Height: 5'6" Code: 8302-2 SpO2: 97% Weight: 177 lb s Code: 76748-2 Functional Status No Functional Status data Reason For Visit Reason For Visit Effective Dates Notes abdominal pain 07/19/2020 sinus congestion 05/19/2020 Hospital Follow Up 02/29/2020 fever 02/22/2020 dysuria 02/08/2020 muscle weakness 08/31/2019 sore throat 05/20/2019 dizziness 01/07/2019 headache 11/19/2018 abdominal pain 03/20/2018 some black spots in vision- saw eye dr and was told it was migraine - when she talks her head pulsates headache 03/05/2018 chest pain/pressure 11/04/2017 chest pain/pressure 10/22/2017 abdominal pain 08/07/2017 cough 04/02/2017 lower leg pain 02/18/2017 headache 10/25/2016 hives (urticaria) 05/14/2016 sinus congestion 04/02/2016 rash 10/06/2015 edema 09/27/2015 neck pain 10/25/2014 neck pain 09/21/2014 Encounters Encounter Performer Location Codes Date ([id number]) [id number] EST. PATIENT, LEVEL IV Diagnosis: Other malaise[ICD10: R53.81] Diagnosis: Epigastric abdominal pain[ICD10: R10.13] Diagnosis: Fibromyalgia[ICD10: M79.7] Diagnosis: Diverticulitis large intestine[ICD10: K57.32] Angelita Panda MD, [facility] CPT-4: 25182 07/19/2020 ([id number]) 97879 EST. PATIENT, LEVEL III Diagnosis: Chronic maxillary sinusitis[ICD10: J32.0] Diagnosis: Cough[ICD10: R05] Angelita Panda MD, [facility] CPT-4: 88038 05/19/2020 ([id number]) 24895 EST. PATIENT, LEVEL III Diagnosis: Pneumonia of right middle lobe due to infectious organism[ICD10: J18.9] Diagnosis: Nausea[ICD10: R11.0] Angelita Panda MD, [facility] CPT-4 : 36042 02/29/2020 ([id number]) 99072 EST. PATIENT, LEVEL IV Diagnosis: Fever in other diseases[ICD10: R50.81] Diagnosis: Acute recurrent frontal sinusitis[ICD10: J01.11] Diagnosis: Lymphadenopathy of head and neck[ICD10: R59.1] Diagnosis: Diverticulitis of large intestine without perforation or abscess without bleeding[ICD10: K57.32] Angelita Panda MD, [facility] CPT-4 : 43866 02/22/2020 [id number] EST. PATIENT, LEVEL III Diagnosis: Dysuria[ICD10: R30.0] Diagnosis: Diverticulitis large intestine[ICD10: K57.32] Diagnosis: Gastro-esophageal reflux disease without esophagitis[ICD10: K21.9] Kristi Panda MD, [facility] CPT-4: 85359 02/08/2020 ([id number]) 48454 EST. PATIENT, LEVEL IV Diagnosis: Epigastric abdominal pain[ICD10: R10.13] Diagnosis: Muscle cramps[ICD10: R25.2] Diagnosis: Muscle spasm of back[ICD10: M62.830] Diagnosis: Diverticulitis of large intestine without perforation or abscess without bleeding[ICD10: K57.32] Angelita Panda MD, [facility] CPT-4 : 09718 08/31/2019 ([id number]) 78742 EST. PATIENT, LEVEL III Diagnosis: Chronic maxillary sinusitis[ICD10: J32.0] Diagnosis: Neck pain[ICD10: M54.2] Diagnosis: Lymphadenopathy of head and neck[ICD10: R59.1] Angelita Panda MD, [facility] CPT-4: 90310 05/20/2019 ([id number]) 51144 EST. PATIENT, LEVEL III Diagnosis: Chronic maxillary sinusitis[ICD10: J32.0] Angelita Panda MD, [facility] CPT-4: 62110 01/07/2019 ([id number]) 04761 EST. PATIENT, LEVEL III Diagnosis: Acute recurrent frontal sinusitis[ICD10: J01.11] Diagnosis: Headache[ICD10: R51] Angelita Panda MD, [facility] CPT-4 : 08428 11/19/2018 ([id number]) 45013 EST. PATIENT, LEVEL IV Diagnosis: Headache[ICD10: R51] Diagnosis: Acute recurrent frontal sinusitis[ICD10: J01.11] Diagnosis: Dizziness and giddiness[ICD10: R42] Diagnosis: Gastro-esophageal reflux disease without esophagitis[ICD10: K21.9] Angelita Panda MD, [facility] CPT-4: 48167 03/20/2018 26890 EST. PATIENT, LEVEL IV Diagnosis: Other acute sinusitis[ICD10: J01.80] Diagnosis: Other allergic rhinitis[ICD10: J30.89] Kristi Guerrero MD, [facility] CPT-4: 22450 03/05/2018 ([id number]) 75804 EST. PATIENT, LEVEL III Diagnosis: Localized edema[ICD10: R60.0] Diagnosis: Gastro-esophageal reflux disease without esophagitis[ICD10: K21.9] Diagnosis: Irritable bowel syndrome with diarrhea[ICD10: K58.0] Anne Panda MD, [facility] CPT-4: 40089 11/04/2017 ([id number]) 72974 EST. PATIENT, LEVEL IV Diagnosis: Localized edema[ICD10: R60.0] Diagnosis: Strain of muscle and tendon of front wall of thorax, initial encounter[ICD10: S29.011A] Diagnosis: Fibromyalgia[ICD10: M79.7] Diagnosis: Gastro-esophageal reflux disease without esophagitis[ICD10: K21.9] Angelita Panda MD, [facility] CPT-4: 75954 10/22/2017 05726 EST. PATIENT, LEVEL IV Diagnosis: Gastro-esophageal reflux disease without esophagitis[ICD10: K21.9] Diagnosis: Other dorsalgia[ICD10: M54.89] Diagnosis: Muscle spasm of back[ICD10: M62.830] Kristi Panda MD, [facility] CPT-4: 90769 08/07/2017 90998 EST. PATIENT, LEVEL III Diagnosis: Other malaise[ICD10: R53.81] Diagnosis: Acute laryngopharyngitis[ICD10: J06.0] Diagnosis: Other allergic rhinitis[ICD10: J30.89] Kristi Guerrero MD, [facility] CPT-4: 29101 04/02/2017 39131 EST. PATIENT, LEVEL IV Diagnosis: Localized edema[ICD10: R60.0] Diagnosis: Gastro-esophageal reflux disease without esophagitis[ICD10: K21.9] Kristi Panda MD, [facility] CPT-4: 75965 02/18/2017 ([id number]) 25401 EST. PATIENT, LEVEL III Diagnosis: Headache[ICD10: R51] Angelita Panda MD, [facility] CPT-4 : 57714 10/25/2016 ([id number]) 89942 EST. PATIENT, LEVEL III Diagnosis: Allergic urticaria[ICD10: L50.0] Anne handley MD, [facility] CPT-4: 49565 05/14/2016 94544 EST. PATIENT, LEVEL IV Diagnosis: Other acute sinusitis[ICD10: J01.80] Diagnosis: Acute laryngopharyngitis[ICD10: J06.0] Diagnosis: Other allergic rhinitis[ICD10: J30.89] Kristi Guerrero MD, [facility] CPT-4: 49590 04/02/2016 ([id number]) Miscellaneous no charge Diagnosis: Vitamin D deficiency, unspecified[ICD10: E55.9] Diagnosis: Encounter for general adult medical examination without abnormal findings[ICD10: Z00.00] Diagnosis: Systemic lupus erythematosus (SLE)[ICD10: M32] Angelita Panda MD, [facility] CPT-4: 82070 10/06/2015 ([id number]) 25316 EST. PATIENT, LEVEL III Diagnosis: Generalized skin eruption due to drugs and medicaments taken internally[ICD10: L27.0] Diagnosis: Adverse effect of other drugs, medicaments and biological substances, initial encounter[ICD10: T50.995A] [facility] T-4: 72229 10/06/2015 ([id number]) 44781 EST. PATIENT, LEVEL III Diagnosis: Diarrhea, unspecified[ICD10: R19.7] Diagnosis: Vitamin D deficiency, unspecified[ICD10: E55.9] Angelita Panda MD, [facility] CPT-4: 92656 09/27/2015 ([id number]) 24019 EST. PATIENT, LEVEL IV Diagnosis: BENIGN PAROXYSMAL VERTIGO[ICD9: 386.11] Diagnosis: SYST LUPUS ERYTHEMATOSUS[ICD9: 710.0] [facility] CPT-4: 41204 10/25/2014 ([id number]) OFFICE VISIT, NEW - LEVEL 4 Diagnosis: BENIGN PAROXYSMAL VERTIGO[ICD9: 386.11] Diagnosis: Diarrhea[ICD9: 787.91] Diagnosis: Vitamin D deficiency[ICD9: 268.9] Diagnosis: SYST LUPUS ERYTHEMATOSUS[ICD9: 710.0] Angelita Panda MD, [facility] CPT-4: 07497 09/21/2014 Plan of Care Planned Activity Notes Codes Status Date Patient Education: Patient Medication Summary Completed 01/25/2021 Visit Plan: Abdominal pain - hx of recur rent diverticulitis without abscess or perforation - discussed with patient - rx for flagyl sent to pharmacy. Myalgias, joint pain diffusely, back pain, muscle aches - discussed with pt - recommended lyrica at low dose, she will consider this recommendation. 07/19/2020 App[facility]ment: [phone] [facility] (15 min) Moderate 07/19/2020 Patient Education: Patient Medication Summary Completed 07/19/2020 Visit Plan: Sinusitis - Pt has acute inf ection - pain in face, maxillary region, Pt informed to use decongestant, RX given to patient, sinus rinses also recommended. Call if symptoms do not show improvement. 05/19/2020 Appointment: [facility] [phone] [facility] (15 min) Moderate 05/19/2020 Patient Education: Patient Medication Summary Completed 05/19/2020 Visit Plan: Pneumonia - Pt has been diag nosed with pneumonia by physical exam. The pt is aware of the diagnosis and the need for acute treatment of this illness. with suspected dehydration from the diarrhea and poor intake, i have advised as follows: hold the maxzide for the next 3 days - get gatorade juice based and drink at least three tonight and also a bottle of regular gatorade. decrease the steroid to 1/2 pill daily - x 2 more days Nausea - start on zofran for nausea if needed you cannot go back to work until depending on your symptoms. text me an update at least twice a day with how you are feeling. 02/29/2020 Appointment: [facility] [phone] [facility] (30 min) Complex 02/29/2020 Patient Education: Patient Medication Summary Completed 02/29/2020 Appointment: Injection 02/24/2020 Patient Education: Patient Medication Summary Completed 02/24/2020 Visit Plan: Sinusitis - Pt has acute inf ection - pain in face, maxillary region, Pt informed to use decongestant, RX given to patient, sinus rinses also recommended. Call if symptoms do not show improvement. Influenza swab negative Covid yesterday negative Diverticulitis - monitor symptoms - rx for flagyl sent to pharmacy. Vaginal discharge - rx for diflucan sent to pharmacy. 02/22/2020 Appointment: [phone] [facility] [place] (15 min) Moderate 02/22/2020 [facility]ointment: [phone] ([facility] min) Complex 02/22/2020 Patient Education: Patient Medication Summary Completed 02/22/2020 Visit Plan: UTI - pt with positive urina lysis - culture sent if appropriate. Antibiotic electronically prescribed to pt's pharmacy of choice. Pt to call if symptoms do not improve. Diverticulitis - rx for antibiotic sent to pt's pharmacy - pt advised to avoid seeds, nuts, popcorn, or any other food which has been proven to upset the pt's stomach. Esophageal Reflux - the patient has been counseled against excessive intake of caffeine, spicy foods, peppermint, and cinnamon - all of which can exacerbate esophageal reflux. The patient is to take medications as prescribed and call the office if the symptoms are not improving. 02/08/2020 Appointment: Krist[facility] Siegel [facility]el[phone] [facility] (30 min) Complex 02/08/2020 Patient Education: Patient Medication Summary Completed 02/08/2020 Care Plan: Urine Culture Pending Visit Plan: Abdominal pain - hx of recur rent diverticulitis without abscess or perforation - discussed with patient - rx for flagyl sent to pharmacy. Upper back jun n- discussed stretching and treatment with counter-pressure to upper back over the site of pain. Abdominal pain - recommended salonpas over site of pain in upper abdomen. Muscle spasms - recommended as follows: tonic water - with quinine and 1/2 of a magnesium 08/31/2019 Appointment: [facility]el[facility] [phone] [facility] [place] (15 min) Moderate 08/31/2019 Patient Education: Patient Medication Summary Completed 08/31/2019 Visit Plan: Chronic sinusitis - discusse d treatment with the patient - I have called [facility] pharmacy and sent out garamycin dexamethasone nasal spray. Pt to call if her symptoms are not improved. She is to take levaquin 500mg daily x 2 weeks - she is aware of side effects of the levaquin. once she is finished with the levaquin she is to take the diflucan 150mg daily x 10 days. She is seeing Dr. Wheatley for her arthritis, and chronic joint pain -she missed an appt with him for labs, she has been given an order for labs, cholesterol, thyroid. We will send a copy of her note from today to Dr. Wheatley's office. 05/20/2019 Patient Education: Patient Medication Summary Completed 05/20/2019 Patient Education: .Cervicalgia Neck Pain Completed 05/20/2019 Patient Education: Patient Medication Summary Completed 04/20/2019 Visit Plan: Chronic sinusitis - discusse d treatment with the patient - I have called [facility] pharmacy and sent out garamycin dexamethasone nasal spray. Pt to call if her symptoms are not improved enough - specifically her dizziness, then we will have to consider decreasing the dose of her anit-hypertensive which she is using for swelling. 01/07/2019 Appointment: Angelita Panda WPtel: [facility] (15 min) Moderate 01/07/2019 Patient Education: Patient Medication Summary Completed 01/07/2019 Visit Plan: Sinusitis - Pt has acute inf ection - pain in face, maxillary region, Pt informed to use decongestant, RX given to patient, sinus rinses also recommended. Call if symptoms do not show improvement. Pt instructed as follows: due to itching of her hands when taking levaquin i have recommended she take - pepcid 20mg, benadryl 25mg, zyrtec 10mg she is to take this every time she takes her levaquin. Sinus congestion in nasal passageways to be treated with decadron nasal spray twice daily take a probiotic twice daily Headaches - sinus related- MRI done in march negative for any acute abnormality. 11/19/2018 Appointment: Angelita Panda WPtel: [facility] (15 min) Moderate 11/19/2018 Patient Education: Patient Medication Summary Completed 11/19/2018 Care Plan: Urine Culture Pending 01/2018 Visit Plan: Sinusitis, Headache, Dizzine ss - reviewed with pt - started on decongestant and patient is to be on antibiotic as well for sinus infection, she is to call if the symptoms of sinus infection, headache and dizziness does not improve. Abdominal pain - upset stomach - rx for questran sent to pharmacy. 03/20/2018 Appointment: Angelita Panda WPtel: [phone] [facility] (15 min) Moderate 03/20/2018 Patient Education: Patient Medication Summary Completed 03/20/2018 Visit Plan: Sinusitis - Pt has acute inf ection - pain in face, maxillary region, Pt informed to use decongestant, RX given to patient, sinus rinses also recommended. Call if symptoms do not show improvement. Allergies - chronic - recommended pt to use allergy medication as prescribed. Pt has been counseled as to the appropriate use of the medication. Pt to call if allergy symptoms are not controlled with the medication. If using nasal spray, instructions as follows: Nasal spray- use twice daily, one spray per nostril twice daily, after 30 minutes, rinse out nose with saline spray.. Use opposite hand per nostril to spray in the nasal steroid allergy spray. 03/05/2018 Appointment: Kristi Siegel WPtel: [phone] [facility] (15 min) Moderate 03/05/2018 Patient Education: Patient Medication Summary Completed 03/05/2018 Visit Plan: Iaaqy-orvkahby-nukihxrd maxi de UNXY-wahjrmxf-jnavofsf low spice diet-dexilant daily IBS with diarrhea-patient had scope with Dr Luo-results pending-recommend probiotics twice daily 11/04/2017 Appointment: Anne Huston WPtel: [phone] [phone] [place] (15 min) Moderate 11/04/2017 Patient Education: Patient Medication Summary Completed 11/04/2017 Appointment: Anne Huston WPtel: [phone] [phone] [place] (30 min) Complex 10/22/2017 Patient Education: Patient Medication Summary Completed 10/22/2017 Visit Plan: Esophageal Reflux - the lazarus ent has been counseled against excessive intake of caffeine, spicy foods, peppermint, and cinnamon - all of which can exacerbate esophageal reflux. The patient is to take medications as prescribed and call the office if the symptoms are not improving. Muscle spasm - back pain- the patient was instructed in appropriate posture, need for weight loss to alleviate abdominal obesity that is worsening the patient's back pain.. The pt is to use prn antiinflammatories to manage acute pain. The patient is to call the office if the pain is worsening or does not improve. 08/07/2017 Appointment: Kristi Siegel WPtel: [facility] (15 min) Moderate 08/07/2017 Patient Education: Patient Medication Summary Completed 08/07/2017 Visit Plan: URI - Pt advised to increase fluids, vitamin C. Discussed natural and expected course of this diagnosis and need to alert me if symptoms do not follow expected course, or if any worse. RX sent to patient's pharmacy. Allergies - chronic - recommended pt to use allergy medication as prescribed. Pt has been counseled as to the appropriate use of the medication. Pt to call if allergy symptoms are not controlled with the medication. If using nasal spray, instructions as follows: Nasal spray- use twice daily, one spray per nostril twice daily, after 30 minutes, rinse out nose with saline spray.. Use opposite hand per nostril to spray in the nasal steroid allergy spray. 04/02/2017 Appointment: Kristi Siegel WPtel: [facility] (10 min) Simple 04/02/2017 Appointment: Kristi Siegel WPtel: [facility] (15 min) Moderate 04/02/2017 Patient Education: Patient Medication Summary Completed 04/02/2017 Care Plan: C A/B FLU Approved 017 Visit Plan: Edema - pt has been advised to elevate legs to prevent dependent edema, compression has been recommended to help to naturally decrease peripheral edema. Diuretic use has been discussed and pt has been instructed in appropriate use of such medication as necessary to further attempt to reduce peripheral edema. Esophageal Reflux - the patient has been counseled against excessive intake of caffeine, spicy foods, peppermint, and cinnamon - all of which can exacerbate esophageal reflux. The patient is to take medications as prescribed and call the office if the symptoms are not improving. 02/18/2017 Appointment: Kristi Siegel WPtel: [phone] [facility] (30 min) Complex 02/18/2017 Patient Education: Patient Medication Summary Completed 02/18/2017 Patient Education: Obesity Completed 1 04/20/2016 Appointment: Angelita Panda WPtel: [phone] [facility] (15 min) Moderate 10/31/2016 Visit Plan: Headache - RX for muscle rel axer, make a food diary - call if symptoms worsen. 10/25/2016 Appointment: Angelita Panda WPtel: [phone] [facility] (15 min) Moderate 10/25/2016 Patient Education: Patient Medication Summary Completed 10/25/2016 Appointment: Injection 05/30/2016 Patient Education: Patient Medication Summary Completed 05/30/2016 Appointment: Injection 05/16/2016 Patient Education: Patient Medication Summary Completed 05/16/2016 Appointment: Injection 05/15/2016 Visit Plan: Allergic reaction-due to zit hromax-kenalog injection today in the office-start pepcid and claritin as discussed, continue benadryl every 6 hours - call if symptoms ANY worse-discussed with Dr Panda-come back for another kenalog injection tomorrow morning-start oral prednisone only if needed. Patient verbalized understanding of plan. 05/14/2016 Patient Education: Patient Medication Summary Completed 05/14/2016 Visit Plan: Sinusitis - Pt has acute inf ection - pain in face, maxillary region, Pt informed to use decongestant, RX given to patient, sinus rinses also recommended. Call if symptoms do not show improvement. URI - Pt advised to increase fluids, vitamin C. Discussed natural and expected course of this diagnosis and need to alert me if symptoms do not follow expected course, or if any worse. RX sent to patient's pharmacy. Allergies - chronic - recommended pt to use allergy medication as prescribed. Pt has been counseled as to the appropriate use of the medication. Pt to call if allergy symptoms are not controlled with the medication. If using nasal spray, instructions as follows: Nasal spray- use twice daily, one spray per nostril twice daily, after 30 minutes, rinse out nose with saline spray.. Use opposite hand per nostril to spray in the nasal steroid allergy spray. 04/02/2016 Appointment: Kristi Siegel WPtel: [facility] (15 min) Moderate 04/02/2016 Patient Education: Patient Medication Summary Completed 04/02/2016 Appointment: Lab Draw 10/06/2015 Appointment: Kristi Siegel WPtel: [address] [place], [place] [id number] (30 min) Complex 10/06/2015 Patient Education: Patient Medication Summary Completed 10/06/2015 Patient Education: Patient Medication Summary Completed 10/06/2015 Visit Plan: Diarrhea/Gas Bloating - leatha mmended pt to decrease fatty food intake, use tums with gas relief, probiotic, call if not improving. Overweight - RX for contrave. 09/27/2015 Appointment: Angelita Panda WPtel: [facility] (15 min) Moderate 09/27/2015 Patient Education: Patient Medication Summary Completed 09/27/2015 Patient Education: Obesity Completed 0 09/27/2015 Appointment: Angelita Panda WPtel: [address] [place], [place] [id number] (15 min) Moderate 04/13/2015 Appointment: Angelita Panda WPtel: [address] [place], [place] [id number] (15 min) Moderate 03/01/2015 Visit Plan: BPPV - Benign Paroxysmal Pos itional Vertigo - discussed diagnosis with the patient, offered the pt the appropriate additional information in hand- out. Pt instructed in home exercises to help alleviate and prevent future recurrent episodes of vertigo. Pt informed that if symptoms worsen, call the office for further instructions/medication interventions. Vertigo has improved with Maxzide. Chronic sinusitis - refill of levaquin given to patient. 10/25/2014 Appointment: [facility]Ptel[phone] [facility] (15 min) Moderate 10/25/2014 Patient Education: Patient Medication Summary Completed 10/25/2014 Visit Plan: Vertigo - recommended that w e start on Maxzide - will monitor symptoms - recommended 1/2 dose to start and will also have pt start on BPPV exercises. Pt to report back to the office on her symptoms with hopeful improvement in her condition. SLE with pt having tried Plaquenil with no real improvement after several months - she was seen in the past by a specialist in [place], but did not feel as if he was interested in really helping her and listening to her symptoms. I have advised the pt that I will attempt to get her in with another provider, Dr. Wheatley in [place] who has an excellent reputation with the patients and other physicians. 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 Aceves. Diarrhea - pt has had diarrhea since the removal of her gallbladder - I have recommended that we start with questran at meals, will monitor her symptoms, can increase or decrease the frequency and quantity of the questran based on her GI response. 09/21/2014 Appointment: (S) New Patient 09/21/2014 Patient Education: Patient Medication Summary Completed 09/21/2014 Patient Education: Hypertension Completed 09/21/2014 Instructions Comment . Abdominal pain - hx of recurrent diver ticulitis without abscess or perforation - discussed with patient - rx for flagyl sent to pharmacy. Myalgias, joint pain diffusely, back pain, muscle aches - discussed with pt - recommended lyrica at low dose, she will consider this recommendation. . Sinusitis - Pt has acute infection - p ain in face, maxillary region, Pt informed to use decongestant, RX given to patient, sinus rinses also recommended. Call if symptoms do not show improvement. hold the maxzide for the next 3 days - decrease the steroid to 1/2 pill daily - x 2 more days start on zofran for nausea if needed you cannot go back to work until depending on your symptoms. get gatorade juice based and drink at least three tonight and also a bottle of regular gatorade. text me an update at least twice a day with how you are feeling. . Pneumonia - Pt has been diagnosed with pneumonia by physical exam. The pt is aware of the diagnosis and the need for acute treatment of this illness. with suspected dehydration from the diarrhea and poor intake, i have advised as follows: hold the maxzide for the next 3 days - get gatorade juice based and drink at least three tonight and also a bottle of regular gatorade. decrease the steroid to 1/2 pill daily - x 2 more days Nausea - start on zofran for nausea if needed you cannot go back to work until depending on your symptoms. text me an update at least twice a day with how you are feeling. . Sinusitis - Pt has acute infection - p ain in face, maxillary region, Pt informed to use decongestant, RX given to patient, sinus rinses also recommended. Call if symptoms do not show improvement. Influenza swab negative Covid yesterday negative Diverticulitis - monitor symptoms - rx for flagyl sent to pharmacy. Vaginal discharge - rx for diflucan sent to pharmacy. . UTI - pt with positive urinalysis - cu lture sent if appropriate. Antibiotic electronically prescribed to pt's pharmacy of choice. Pt to call if symptoms do not improve. Diverticulitis - rx for antibiotic sent to pt's pharmacy - pt advised to avoid seeds, nuts, popcorn, or any other food which has been proven to upset the pt's stomach. Esophageal Reflux - the patient has been counseled against excessive intake of caffeine, spicy foods, peppermint, and cinnamon - all of which can exacerbate esophageal reflux. The patient is to take medications as prescribed and call the office if the symptoms are not improving. salonpas lidocaine 4%patch voltaren gel - RX to be sent to pharmacy - [facility] - lay on it for your back tonic water - with quinine and 1/2 of a magnesium flagyl will be sent as well . Abdominal pain - hx of recurrent diver ticulitis without abscess or perforation - discussed with patient - rx for flagyl sent to pharmacy. Upper back jun n- discussed stretching and treatment with counter-pressure to upper back over the site of pain. Abdominal pain - recommended salonpas over site of pain in upper abdomen. Muscle spasms - recommended as follows: tonic water - with quinine and 1/2 of a magnesium . Chronic sinusitis - discussed treatment with the patient - I have called [facility] pharmacy and sent out garamycin dexamethasone nasal spray. Pt to call if her symptoms are not improved. She is to take levaquin 500mg daily x 2 weeks - she is aware of side effects of the levaquin. once she is finished with the levaquin she is to take the diflucan 150mg daily x 10 days. She is seeing Dr. Wheatley for her arthritis, and chronic joint pain -she missed an appt with him for labs, she has been given an order for labs, cholesterol, thyroid. We will send a copy of her note from today to Dr. Wheatley's office. . Chronic sinusitis - discussed treatmen t with the patient - I have called [facility] pharmacy and sent out garamycin dexamethasone nasal spray. Pt to call if her symptoms are not improved enough - specifically her dizziness, then we will have to consider decreasing the dose of her anit-hypertensive which she is using for swelling. pepcid 20mg benadryl 25mg zyrtec 10mg take this every time you take your levaquin use nasal spray twice daily take a probiotic twice daily . Sinusitis - Pt has acute infection - p ain in face, maxillary region, Pt informed to use decongestant, RX given to patient, sinus rinses also recommended. Call if symptoms do not show improvement. Pt instructed as follows: due to itching of her hands when taking levaquin i have recommended she take - pepcid 20mg, benadryl 25mg, zyrtec 10mg she is to take this every time she takes her levaquin. Sinus congestion in nasal passageways to be treated with decadron nasal spray twice daily take a probiotic twice daily Headaches - sinus related- MRI done in march negative for any acute abnormality. . Sinusitis, Headache, Dizziness - revie wed with pt - started on decongestant and patient is to be on antibiotic as well for sinus infection, she is to call if the symptoms of sinus infection, headache and dizziness does not improve. Abdominal pain - upset stomach - rx for questran sent to pharmacy. . Sinusitis - Pt has acute infection - p ain in face, maxillary region, Pt informed to use decongestant, RX given to patient, sinus rinses also recommended. Call if symptoms do not show improvement. Allergies - chronic - recommended pt to use allergy medication as prescribed. Pt has been counseled as to the appropriate use of the medication. Pt to call if allergy symptoms are not controlled with the medication. If using nasal spray, instructions as follows: Nasal spray- use twice daily, one spray per nostril twice daily, after 30 minutes, rinse out nose with saline spray.. Use opposite hand per nostril to spray in the nasal steroid allergy spray. CONTINUE DEXILANT PROBIOTIC TWICE DAILY X 2 WEEKS THEN DAILY GAS X NEEDED . Wrttb-bvynomip-bxixuyly maxide UGNF-hhzlknki-bsxfplug low spice diet-dexilant daily IBS with diarrhea-patient had scope with Dr Luo-results pending-recommend probiotics twice daily . Esophageal Reflux - the patient has be en counseled against excessive intake of caffeine, spicy foods, peppermint, and cinnamon - all of which can exacerbate esophageal reflux. The patient is to take medications as prescribed and call the office if the symptoms are not improving. Muscle spasm - back pain- the patient was instructed in appropriate posture, need for weight loss to alleviate abdominal obesity that is worsening the patient's back pain.. The pt is to use prn antiinflammatories to manage acute pain. The patient is to call the office if the pain is worsening or does not improve. . URI - Pt advised to increase fluids, v itamin C. Discussed natural and expected course of this diagnosis and need to alert me if symptoms do not follow expected course, or if any worse. RX sent to patient's pharmacy. Allergies - chronic - recommended pt to use allergy medication as prescribed. Pt has been counseled as to the appropriate use of the medication. Pt to call if allergy symptoms are not controlled with the medication. If using nasal spray, instructions as follows: Nasal spray- use twice daily, one spray per nostril twice daily, after 30 minutes, rinse out nose with saline spray.. Use opposite hand per nostril to spray in the nasal steroid allergy spray. . Edema - pt has been advised to elevate legs to prevent dependent edema, compression has been recommended to help to naturally decrease peripheral edema. Diuretic use has been discussed and pt has been instructed in appropriate use of such medication as necessary to further attempt to reduce peripheral edema. Esophageal Reflux - the patient has been counseled against excessive intake of caffeine, spicy foods, peppermint, and cinnamon - all of which can exacerbate esophageal reflux. The patient is to take medications as prescribed and call the office if the symptoms are not improving. . Headache - RX for muscle relaxer, make a food diary - call if symptoms worsen. PEPCID 20MG TWICE DAILY CLARITIN 10MG DAILY BENADRYL 50MG EVERY 4-6 HOURS KENALOG INJECTION TODAY IN THE OFFICE CALL ME LATER TODAY IF YOU ARE NOT FEELING BETTER . Allergic reaction-due to zithromax-faye alog injection today in the office-start pepcid and claritin as discussed, continue benadryl every 6 hours -call if symptoms ANY worse-discussed with Dr Panda-come back for another kenalog injection tomorrow morning-start oral prednisone only if needed. Patient verbalized understanding of plan. . Sinusitis - Pt has acute infection - p ain in face, maxillary region, Pt informed to use decongestant, RX given to patient, sinus rinses also recommended. Call if symptoms do not show improvement. URI - Pt advised to increase fluids, vitamin C. Discussed natural and expected course of this diagnosis and need to alert me if symptoms do not follow expected course, or if any worse. RX sent to patient's pharmacy. Allergies - chronic - recommended pt to use allergy medication as prescribed. Pt has been counseled as to the appropriate use of the medication. Pt to call if allergy symptoms are not controlled with the medication. If using nasal spray, instructions as follows: Nasal spray- use twice daily, one spray per nostril twice daily, after 30 minutes, rinse out nose with saline spray.. Use opposite hand per nostril to spray in the nasal steroid allergy spray. . Diarrhea/Gas Bloating - recommended pt to decrease fatty food intake, use tums with gas relief, probiotic, call if not improving. Overweight - RX for contrave. . BPPV - Benign Paroxysmal Positional Ve rtigo - discussed diagnosis with the patient, offered the pt the appropriate additional information in hand-out. Pt instructed in home exercises to help alleviate and prevent future recurrent episodes of vertigo. Pt informed that if symptoms worsen, call the office for further instructions/medication interventions. Vertigo has improved with Maxzide. Chronic sinusitis - refill of levaquin given to patient. Monitor your blood pressure at home and record. Bring in your readings to your next appointment, or as directed. Call for chest pain, shortness of breath, headaches, or other concerns. . Vertigo - recommended that we start on Maxzide - will monitor symptoms - recommended 1/2 dose to start and will also have pt start on BPPV exercises. Pt to report back to the office on her symptoms with hopeful improvement in her condition. SLE with pt having tried Plaquenil with no real improvement after several months - she was seen in the past by a specialist in [place], but did not feel as if he was interested in really helping her and listening to her symptoms. I have advised the pt that I will attempt to get her in with another provider, Dr. Wheatley in [place] who has an excellent reputation with the patients and other physicians. 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 Aceves. Diarrhea - pt has had diarrhea since the removal of her gallbladder - I have recommended that we start with questran at meals, will monitor her symptoms, can increase or decrease the frequency and quantity of the questran based on her GI response. Medical Equipment No Medical Equipment data Health Concerns Section Health Concerns data not found Goals Section Goals data not found Interventions Section Interventions data not found Health Status Evaluations/Outcomes Section Health Status Evaluations/Outcomes data not found Advance Directives No Advance Directive data
[2021-02-21] MEDS ORDERED: ASPIRIN 81 MG CHEW (CHILDREN'S ASA) PO ONE (17:00)
[2021-02-21] MEDS ORDERED: morphine INJ 10 MG/ML 1ML (SYR OR VIAL) IV STA (17:00)
--- NOTE | 2021-02-21 17:04 | ED Chest Pain ---
General Chief Complaint: Cardiac/General Problems Stated Complaint: CHEST PAIN, HIGH BLOOD PRESSURE Source: patient Exam Limitations: no limitations History of Present Illness Date Seen by Provider: Feb 21, 2021 Time Seen by Provider: 17:02 Initial Comments Patient is a 50-year-old female presents ED with chest pain. Chest pressure st arted yesterday on the left side of her chest. Around 2:00 today started having pain to the left side of her chest with radiation into her left arm. Patient was sent to the ED from Dr. SENIOR. Patient reports shortness of breath and nausea. She states she does not feel well. Patient is scheduled to follow-up with Dr. Tejeda this . History of hypertension currently on hydrochlorothiazide. Denies diabetes, high cholesterol, smoking, family cardiac history. She states she was diagnosed with Covid last year and since then has had a irregular heart rhythm, elevated blood pressure. She is concerned for elevated blood pressure as high as 150 systolic today. Denies fever, vomiting, headache, dizziness. Diarrhea. She reports some mild epigastric abdominal discomfort. Patient denies of any blood thinner use. Denies history of PE, DVT. Denies any leg swelling, leg pain. Allergies and Home Medications Allergies Coded Allergies: Penicillins (Unverified Allergy, Unknown, SOB, 02/01/15) adhesive (Verified Allergy, Unknown, BLISTERS, 02/01/15) azithromycin (Verified Allergy, Unknown, RASH, 11/01/17) clarithromycin (Unverified Allergy, Unknown, SWELLING, 02/01/15) moxifloxacin HCl (Unverified Allergy, Unknown, SWELLING, 02/01/15) Patient Home Medication List Home Medication List Reviewed: Yes Albuterol Sulfate (Proventil Hfa) 6.7 Gm Hfa.aer.ad, 2 PUFF IH Q4H PRN for SHORTNESS OF BREATH, (Reported) Entered as Reported by: ASCENCION ROSAS on 02/01/15 0938 Cefuroxime Axetil (Cefuroxime) 500 Mg Tablet, 500 MG PO BID Prescribed by: JOSELINE HURST on 02/26/20 192 Cholestyramine/Aspartame (Questran Light Powder) 210 Gm Powder, 210 GM PO BID Prescribed by: GUNNER CAST on 11/01/17 1119 Multivitamin (Multi-Vitamin Daily) 1 Each Tablet, 1 EACH PO DAILY, (Reported) Entered as Reported by: ASCENCION ROSAS on 02/01/15 0938 Triamterene/Hydrochlorothiazid (Triamterene-Hctz 37.5-25 mg Cp) 1 Each Capsule, 1 EACH PO DAILY, (Reported) Entered as Reported by: ASCENCION ROSAS on 02/01/15 0825 Review of Systems Review of Systems Constitutional: No chills, No dizziness, No fever, No malaise EENTM: No See HPI, No Blurred Vision, No Double Vision Respiratory: Denies Cough, Denies Orthopnea; Shortness of Air Cardiovascular: Chest Pain; Denies Edema; Palpitations Genitourinary: Denies Burning, Denies Discharge Musculoskeletal: No see HPI, No back pain, No gout, No joint pain Skin: No change in color Psychiatric/Neurological: Denies Anxiety, Denies Headache Past Jkrwjdk-Fnshjs-Duxlds Hx Patient Social History Tobacco Use?: No Substance use?: No Alcohol Use?: No Immunizations Up To Date Influenza Vaccine Up-to-Date: No; Not Current First/Initial COVID19 Vaccinat: june 2020 COVID19 Vaccine Maintenance 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: [facility] Seasonal Allergies Seasonal Allergies: Yes Past Medical History Surgeries: Yes (BREAST LUMPECTOMY, SKIN LESION REMOVED, R hip replaced, R wrist x2, R shoul) Hysterectomy Respiratory: Yes Asthma Cardiac: Yes (hx pvc) Neurological: No 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 0.0oz. 86.443159em; 30.00 BMI Method: General Appearance: No Apparent Distress, WD/WN HEENT: PERRL/EOMI, TMs Normal, Normal ENT Inspection, Pharynx Normal Neck: Full Range of Motion, Normal Inspection, Non Tender, Supple Respiratory: Chest Non Tender, Lungs Clear, Normal Breath Sounds, No Accessory Muscle Use, No Respiratory Distress Cardiovascular: Regular Rate, Rhythm, No Edema, No Gallop, No JVD, No Murmur Gastrointestinal: Normal Bowel Sounds, No Organomegaly, No Pulsatile Mass, Non Tender, Soft Extremity: Normal Capillary Refill, Normal Inspection, Non Tender Neurologic/Psychiatric: Alert, Oriented x3, No Motor/Sensory Deficits, Normal Mood/Affect Progress/Results/Core Measures Results/Orders Lab Results Laboratory Tests Test 02/21/21 16:50 Range/Units White Blood Count 11.5 H 4.3-11.0 10^3/uL Red Blood Count 5.28 H 3.80-5.11 10^6/uL Hemoglobin 16.2 H 11.5-16.0 g/dL Hematocrit 47 35-52 % Mean Corpuscular Volume 89 80-99 fL Mean Corpuscular Hemoglobin 31 25-34 pg Mean Corpuscular Hemoglobin Concent 35 32-36 g/dL Red Cell Distribution Width 12.5 10.0-14.5 % Platelet Count 361 130-400 10^3/uL Mean Platelet Volume 10.0 9.0-12.2 fL Immature Granulocyte % (Auto) 0 % Neutrophils (%) (Auto) 46 42-75 % Lymphocytes (%) (Auto) 45 H 12-44 % Monocytes (%) (Auto) 7 0-12 % Eosinophils (%) (Auto) 1 0-10 % Basophils (%) (Auto) 1 0-10 % Neutrophils # (Auto) 5.3 1.8-7.8 10^3/uL Lymphocytes # (Auto) 5.2 H 1.0-4.0 10^3/uL Monocytes # (Auto) 0.8 0.0-1.0 10^3/uL Eosinophils # (Auto) 0.1 0.0-0.3 10^3/uL Basophils # (Auto) 0.1 0.0-0.1 10^3/uL Immature Granulocyte # (Auto) 0.0 0.0-0.1 10^3/uL Prothrombin Time 12.7 12.2-14.7 SEC INR Comment 0.9 0.8-1.4 Activated Partial Thromboplast Time 31 24-35 SEC D-Dimer < 0.27 0.00-0.49 UG/ML Sodium Level 140 135-145 MMOL/L Potassium Level 3.7 3.6-5.0 MMOL/L Chloride Level 99 98-107 MMOL/L Carbon Dioxide Level 24 21-32 MMOL/L Anion Gap 17 H 5-14 MMOL/L Blood Urea Nitrogen 17 7-18 MG/DL Creatinine 1.19 0.60-1.30 MG/DL Estimat Glomerular Filtration Rate 48 BUN/Creatinine Ratio 14 Glucose Level 104 70-105 MG/DL Calcium Level 10.4 H 8.5-10.1 MG/DL Corrected Calcium 8.5-10.1 MG/DL Magnesium Level 2.3 1.6-2.4 MG/DL Total Bilirubin 0.5 0.1-1.0 MG/DL Aspartate Amino Transf (AST/SGOT) 42 H 5-34 U/L Alanine Aminotransferase (ALT/SGPT) 50 0-55 U/L Alkaline Phosphatase 123 40-136 U/L Total Creatine Kinase 185 H 29-168 U/L Troponin I < 0.028 <0.028 NG/ML Total Protein 8.7 H 6.4-8.2 GM/DL Albumin 4.9 H 3.2-4.5 GM/DL Lipase 40 8-78 U/L My Orders Orders - ISRAEL RODRIGUES Cbc With Automated Diff (02/21/21 17:00) Magnesium (02/21/21 17:00) Ekg Tracing (02/21/21 17:00) Comprehensive Metabolic Panel (02/21/21 17:00) Protime With Inr (02/21/21:00) Partial Thromboplastin Time (02/21/21 17:00) Monitor-Rhythm Ecg Trace Only (02/21/21 17:00) Ed Iv/Invasive Line Start (02/21/21 17:00) Creatine Kinase (02/21/21 17:00) Troponin I (02/21/21 17:00) Aspirin Chewable Tablet (Baby Aspirin Ch (02/21/21 17:00) Morphine Injection (Morphine Injection (02/21/21 17:00) Lipase (02/21/21 17:04) Fibrin Degradation Products (02/21/21 16:50) Morphine Injection (Morphine Injection (02/21/21 19:00) Dexamethasone Injection (Decadron Injec (02/21/21 19:00) Azithromycin Tablet (Zithromax Tablet) (02/21/21 19:00) Diltiazem Tablet (Cardizem Tablet) (02/22/21 00:00) Ondansetron Oral Dissolve Tab (Zofran (02/21/21 19:15) Diltiazem Cd 24 Hr Capsule (Cardizem Cd (02/21/21 19:04) Dexamethasone Injection (Decadron Injec (02/21/21 19:03) Azithromycin Tablet (Zithromax Tablet) (02/21/21 19:03) Medications Given in ED Current Medications Medications Dose Ordered Sig/Daniel Route Start Time Stop Time Status Last Admin Dose Admin Aspirin 324 mg ONCE ONCE PO 02/21/21 17:00 02/21/21 17:03 DC 02/21/21 17:18 324 MG Azithromycin 500 mg ONCE ONCE PO 02/21/21 19:00 02/21/21 19:36 DC 02/21/21 19:06 500 MG Dexamethasone Sodium Phosphate 4 mg ONCE ONCE IV 02/21/21 19:00 02/21/21 19:13 DC 02/21/21 19:06 4 MG Ondansetron HCl 4 mg ONCE ONCE PO 02/21/21 19:15 02/21/21 19:16 DC 02/21/21 19:13 4 MG Vital Signs/I&O 02/21/21 02/21/21 16:48 19:47 Temp 36.4 36.6 Pulse 87 68 Resp 18 18 B/P (MAP) 136/108 (117) 129/74 Pulse Ox 99 100 O2 Delivery Room Air Room Air Comment Sinus rhythm, 91 bpm, QRS duration 87 MS, QTC 478 MS. Departure Communication (Admissions) Patient with left-sided chest pain, nausea, shortness of breath. Diagnosed Covid 1 year ago. Patient was slightly hypertensive. Patient had a outpatient chest x-ray that was unremarkable. No evidence of pneumonia, pneumothorax. S lightly elevated white blood count 1.5. Currently on antibiotics secondary to UTI. She has no abdominal tenderness. Pain to the left side of her chest with radiation into her left arm. EKG normal sinus rhythm without evidence of ST elevation, depression, arrhythmia. Cardiac work-up unremarkable. Negative D- dimer. Patient appears well and nontoxic. She is scheduled to follow-up with Dr. Tejeda cardiology on . Discussed patient with primary care physician Dr. SENIOR who recommends outpatient follow-up and provide a dose of her dexamethasone, azithromycin and Cardizem at this time. Improvement of the blood pressure. Improvement of her symptoms. Pleurisy likely diagnosis at this time. Appears to be worse with movement. No diffuse ST elevation suggesting pericarditis at this time. 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 Impression Primary Impression: Chest pain Disposition: HOME, SELF-CARE Condition: Stable Departure-Patient Inst. Decision time for Depature: 19:38 Referrals: TYRESE SENIOR MD (PCP/Family) Primary Care Physician Patient Instructions: Chest Pain (DC) ISRAEL RODRIGUES Feb 21, 2021 17:04
[2021-02-21 17:11] LABS: BASOPHILS # (AUTO) 0.1 10^3/uL (0.0-0.1); BASOPHILS % (AUTO) 1 % (0-10); EOSINOPHILS # (AUTO) 0.1 10^3/uL (0.0-0.3); EOSINOPHILS % (AUTO) 1 % (0-10); HEMATOCRIT 47 % (35-52); HEMOGLOBIN 16.2 g/dL (11.5-16.0); LYMPHOCYTES # (AUTO) 5.2 10^3/uL (1.0-4.0); LYMPHOCYTES % (AUTO) 45 % (12-44); MEAN CORPUSCULAR HEMOGLOBIN 31 pg (25-34); MEAN CORPUSCULAR HGB CONC 35 g/dL (32-36); MEAN CORPUSCULAR VOLUME 89 fL (80-99); MONOCYTES # (AUTO) 0.8 10^3/uL (0.0-1.0); MONOCYTES % (AUTO) 7 % (0-12); NEUTROPHILS # (AUTO) 5.3 10^3/uL (1.8-7.8); NEUTROPHILS % (AUTO) 46 % (42-75); PLATELET COUNT 361 10^3/uL (130-400); WHITE BLOOD COUNT 11.5 10^3/uL (4.3-11.0)
[2021-02-21 17:16] LABS: ALBUMIN 4.9 GM/DL (3.2-4.5); CHLORIDE 99 MMOL/L (98-107); POTASSIUM 3.7 MMOL/L (3.6-5.0); SODIUM 140 MMOL/L (135-145)
[2021-02-21 17:17] LABS: CALCIUM 10.4 MG/DL (8.5-10.1)
[2021-02-21 17:18] LABS: GLUCOSE 104 MG/DL (70-105); TOTAL PROTEIN 8.7 GM/DL (6.4-8.2)
[2021-02-21 17:19] LABS: CARBON DIOXIDE 24 MMOL/L (21-32)
[2021-02-21 17:20] LABS: BILIRUBIN,TOTAL 0.5 MG/DL (0.1-1.0)
[2021-02-21 17:22] LABS: ALKALINE PHOSPHATASE 123 U/L (40-136); CREATININE SERUM 1.19 MG/DL (0.60-1.30); GFR ESTIMATED 48
[2021-02-21 17:23] LABS: BUN/CREATININE RATIO 14
[2021-02-21 17:25] LABS: ALANINE AMINOTRANSFERASE 50 U/L (0-55); MAGNESIUM 2.3 MG/DL (1.6-2.4)
[2021-02-21 17:26] LABS: CREATINE KINASE 185 U/L (29-168)
[2021-02-21 18:18] LABS: INR 0.9 (0.8-1.4); PARTIAL THROMBOPLASTIN TIME 31 SEC (24-35); PROTHROMBIN TIME PATIENT 12.7 SEC (12.2-14.7)
[2021-02-21 18:20] LABS: FIBRIN DEGRADATION PRODUCTS < 0.27 UG/ML (0.00-0.49)
[2021-02-21] MEDS ORDERED: morphine INJ 10 MG/ML 1ML (SYR OR VIAL) IVP ONE (19:00)
[2021-02-21] MEDS ORDERED: AZITHROMYCIN 250 MG TAB (ZITHROMAX) PO ONE ×2 (19:00→19:03)
[2021-02-21] MEDS ORDERED: dilTIAZem120 MG (CARDIZEM CD) CAP PO ONE (19:04)
[2021-02-21] MEDS ORDERED: ONDANSETRON 4 MG (ZOFRAN) ORAL DISSOLVE TAB PO ONE (19:15)
[2021-02-21 19:47] VITALS: BP 129/74
== END 2021-02-21 19:48 | disposition home or self-care (01) ==
LOC: EDUNIT# 16:40 → ER 16:42
DX: R07.9 Chest pain, unspecified (principal); J45.909 Unspecified asthma, uncomplicated; Z86.16 Personal history of COVID-19
CPT/HCPCS: 36415; 80053; 82550; 83690; 83735; 84484; 85025; 85379; 85610; 85730; 93005; 93041

== ENCOUNTER → 2021-02-21 | Outpatient (CLI) | payer BC ==
[~2021-02-21] MED LIST changes: +CEFU500T63 PO
--- NOTE | 2021-02-21 18:38 | Diagnostic Imaging Report ---
EXAM: PA and lateral chest at 4:36 PM INDICATION: Chest pains FINDINGS: The heart size is within normal limits and stable when compared to 02/12/2007. The coarse perihilar markings seen previously are again evident and no different. The lungs remain clear. There is no sign of failure, pneumonia or of pleural effusion. The mediastinum is not widened. The osseous structures are intact. IMPRESSION: There is no evidence for active disease. Dictated by: Dictated on workstation # [id number]
== END ==
LOC: RAD 16:08
PROVIDERS: ATTEND Family Medicine
DX: J45.909 Unspecified asthma, uncomplicated (principal)
CPT/HCPCS: 71046

== ENCOUNTER → 2021-03-02 | Outpatient (CLI) | payer BC | LOC: CARD 14:04 | PROVIDERS: ATTEND Family Medicine | DX: I11.9 Hypertensive heart disease without heart failure (principal); Z86.16 Personal history of COVID-19 | CPT/HCPCS: 93306 ==

== ENCOUNTER → 2021-03-20 | Outpatient (CLI) | payer BC | LOC: CARD 08:00 | PROVIDERS: ATTEND Family Medicine | DX: R00.0 Tachycardia, unspecified (principal) | CPT/HCPCS: 93225; 93226 ==

== ENCOUNTER → 2021-06-05 | Outpatient (CLI) | payer BC ==
--- NOTE | 2021-06-06 13:01 | Diagnostic Imaging Report ---
INDICATION: Routine screening. COMPARISON: 04/17/2019 and 04/07/2018. TECHNIQUE: 2D and 3D bilateral screening mammography was performed with CAD. FINDINGS: Scattered fibroglandular densities are identified bilaterally. The parenchymal pattern is stable. No mass or malignant-appearing microcalcifications are seen. The axillae are unremarkable. IMPRESSION: No mammographic features suspicious for malignancy are identified. ACR BI-RADS Category 1: Negative. Result letter will be mailed to the patient. Note: At least 10% of breast cancer is not imaged by mammography. Dictated by: Dictated on workstation # [id number]
== END ==
LOC: RAD 15:30
PROVIDERS: ATTEND Family Medicine
DX: Z12.31 Encounter for screening mammogram for malignant neoplasm of breast (principal)
CPT/HCPCS: 77063; 77067

== ENCOUNTER → 2022-08-16 | Outpatient (CLI) | payer BC ==
[~2022-08-16] MED LIST changes: -TRIA1CAP4 PO; +TRIA1CAP84 PO
--- NOTE | 2022-08-17 09:38 | Diagnostic Imaging Report ---
Indication: Routine screening. Comparison is made with prior mammograms 06/05/2021 and 04/17/2019. 2-D and 3-D bilateral screening mammography was performed with CAD. Scattered fibroglandular densities are identified bilaterally. The overall parenchymal pattern is stable. No mass or malignant-appearing microcalcifications are seen. Axillae are unremarkable. IMPRESSION: BI-RADS Category 1. No mammographic features suspicious for malignancy are identified. ACR BI-RADS Category 1: Negative. Result letter will be mailed to the patient. Note: At least 10% of breast cancer is not imaged by mammography. Dictated by: Dictated on workstation # [id number]
== END ==
LOC: RAD 15:45
PROVIDERS: ATTEND Nurse Practitioner Family
DX: Z12.31 Encounter for screening mammogram for malignant neoplasm of breast (principal)
CPT/HCPCS: 77063; 77067